=== PATIENT | female | born 1955 | race Caucasian/White ===

== ENCOUNTER 2020-11-18 10:28 | Inpatient (IN) | payer OTHER ==
[~2020-11-18] VITALS: Ht 157.5 cm; Wt 93.9 kg
[2020-11-18 11:31] LABS: BASOPHILS ABSOLUTE AUTO 0.06 K/mm3 (0.00-0.23); BASOPHILS PERCENT AUTO 1 % (0-2); EOSINOPHILS ABSOLUTE AUTO 0.04 K/mm3 (0.00-0.68); EOSINOPHILS PERCENT AUTO 0 % (0-6); Hematocrit 43.9 % (33.0-51.0); Hemoglobin 13.7 g/dL (11.5-16.0); IMMATURE GRAN ABSOLUTE AUTO 0.06 K/mm3 (0.00-0.10); IMMATURE GRAN PERCENT AUTO 1 % (0-1); LYMPHOCYTES ABSOLUTE AUTO 0.62 K/mm3 (0.84-5.20); LYMPHOCYTES PERCENT AUTO 6 % (21-46); MONOCYTES ABSOLUTE AUTO 0.61 K/mm3 (0.16-1.47); MONOCYTES PERCENT AUTO 6 % (4-13); Mean Corpuscular HGB 30.2 pg (26.0-34.0); Mean Corpuscular HGB Conc 31.2 g/dL (31.5-36.5); Mean Corpuscular Volume 97 fL (80-100); Mean Platelet Volume 9.7 fL (9.1-12.4); NEUTROPHILS PERCENT AUTO 87 % (41-73); Platelet Count 383 K/mm3 (150-400); RDW Coefficient Variation 11.8 % (11.7-14.2); RDW Standard Deviation 42.2 fL (35.1-46.3); Red Blood Cell Count 4.54 M/mm3 (3.80-5.20); White Blood Cell Count 10.59 K/mm3 (4.00-11.30)
[2020-11-18 11:49] LABS: Alanine Aminotransfer (ALT/SGP 19 U/L (12-78); Albumin, Blood 3.2 g/dL (3.4-5.0); Albumin/Globulin Ratio 0.7 (0.8-1.8); Alk Phos 65 U/L (50-136); Anion Gap 3 mmol/L (6-16); Aspartate Aminotrans (AST/SGOT 17 U/L (12-37); Bilirubin, Total 0.6 mg/dL (0.1-1.0); Blood Urea Nitrogen 9 mg/dL (8-24); Bun/Creatinine Ratio 23.8 (12.0-20.0); CO2, Blood 32 mmol/L (21-32); Calcium, Blood 9.2 mg/dL (8.5-10.1); Chloride, Blood 91 mmol/L (98-108); Creatinine, Blood 0.38 mg/dL (0.40-1.00); Globulin, Blood 4.5 g/dL (2.2-4.0); Glomerular Filtration Rate >60 (60-); Glucose, Blood 160 mg/dL (70-99); Potassium, Blood 4.5 mmol/L (3.5-5.5); Sodium, Blood 126 mmol/L (136-145); Total Protein, Blood 7.7 g/dL (6.4-8.2)
[2020-11-18 11:54] LABS: International Normalized Ratio 1.12; Prothrombin Time Results 11.9 Sec (9.7-11.5)
[2020-11-18 18:28] LABS: PCO2 Arterial 49.5 mmHg (35-45); PO2 Arterial 78.6 mmHg (80-100); pH Blood Arterial 7.43 (7.35-7.45)
--- NOTE | 2020-11-18 19:54 | NUR ---
PCU ADMIT PT PREVIOUSLY ADMITTED TO PCU-12 @ APPROX 1815. THIS RN ASSUMING CARE OF PT @ APPROX 1900. PT A&O X4. BP ELEVATED, OTHERWISE VSS. SPO2 > 92% ON 5L NC W/ PT REPORT OF RA @ BASELINE. MONITOR SHOWING ST, HR 100-110. PT UP IN RM, HOLDING ON TO FURNITURE FOR STANDING, WALKING ALONG BEDSIDE. PT SOB W/ ACTIVITY, REQUIRING REMINDER FOR DEEP BREATHING & REST. BLE W/ +2 EDEMA. WILL CONTINUE TO MONITOR & PROVIDE CARE.
[2020-11-19 04:01] LABS: Anion Gap 8 mmol/L (6-16); Blood Urea Nitrogen 18 mg/dL (8-24); Bun/Creatinine Ratio 32.2 (12.0-20.0); CO2, Blood 32 mmol/L (21-32); Calcium, Blood 9.6 mg/dL (8.5-10.1); Chloride, Blood 94 mmol/L (98-108); Creatinine, Blood 0.56 mg/dL (0.40-1.00); Glomerular Filtration Rate >60 (60-); Glucose, Blood 194 mg/dL (70-99); Potassium, Blood 3.7 mmol/L (3.5-5.5); Sodium, Blood 134 mmol/L (136-145)
--- NOTE | 2020-11-19 05:54 | NUR ---
BP & CBG / CALL TO BP CONTINUES TO BE ELEVATED DESPITE PRN IV HYDRALAZINE GIVEN X2 THIS SHIFT & PT HOME METOPROLOL DOSE NOT CURRENTLY ORDERED. MD LIRA W/ ORDER TO RESTART HOME PO METOPROLOL, SEE ORDER. PT GLUCOSE NOTED TO BE ELEVATED W/ AM LABS. PT DENIES HX DM, BUT IS CURRENTLY RECIEVING IV SOLU-MEDROL, SEE EMAR. MD LIRA W/ ORDER FOR AC&HS CBG MONITORING & LOW SLIDING SCALE INSULIN COVERAGE, SEE ORDERS.
--- NOTE | 2020-11-19 05:59 | NUR ---
SHIFT SUMMARY PT A&O X4. BP ELEVATED, MEDICATED W/ PRN IV HYDRALAZINE X2 THIS SHIFT. OTHERWISE VSS. SPO2 > 92% ON 4-5L NC. MONITOR SHOWING ST, HR 100-110. NO EVENTS OVER NIGHT. WILL CONTINUE TO MONITOR & PROVIDE CARE UNTIL REPORT OFF TO DAY SHIFT RN.
--- NOTE | 2020-11-19 08:37 | NUR ---
Dr. Guzmán here, rounding on pt. Received new orders for transfer in house with telemetry to medical floor. Blood pressure elevated; doctor stated to give am meds now, recheck in an hour and call him if no improvement. She is sitting on side of bed, states that she is feeling much better than she was yesterday. NO obvious dyspnea, mild tachypnea at 20 resp/min, while wearing oxygen at 4 l/min. No pursed lip breathing, able to carry on conversation without breaths in middle of sentences.
--- NOTE | 2020-11-19 09:30 | NUR ---
Standby assistance given by SABAS Mercer, for pt's toileting needs. Heart rate 104-110 during the activity.
--- NOTE | 2020-11-19 10:43 | NUR ---
ASSUMED CARE, MORNING UPDATE PT WAS SLEEPING AT THE TIME OF BEDSIDE REPORT. PT HAS HAD ELEVATED BP THIS MORNING AND IT WAS REPORTED ELEVATED THROUGHOUT THE NIGHT. PRN HYDRALIZINE HAS BEEN ADMINISTERED, DR. MUNROE IS AWARE. PT ON 5L O2 AND BECOMES SOB WITH ACTIVITY AND LYING FLAT. AN ECHO WAS PERFORMED THIS MORNING. TELE SHOWED NEW T-WAVE DEPRESSION THIS AM AT APPROXIMATELY 1015; AN EKG WAS COMPLETED. PT DENIES SOB, CHEST PAIN OR PRESSURE OR DISCOMFORT. PT IS SITTING IN BED AT THIS TIME
--- NOTE | 2020-11-19 15:20 | NUR ---
Advance Directive (AD) education conducted. Patient tells me about her medical issues, about her two sisters that are close to her (one who is buying a house with her) and about her relationship history. Patient then explains her interest in AD but states that her sister will fill it out. I explain about the importance and purpose of the AD and then the filing process and notary/witness requirements. Patient displays a comprehension and voices an appreciation for the information.
--- NOTE | 2020-11-19 19:32 | NUR ---
SHIFT SUMMARY PT HAS REMAINED INDEPENDENT IN THE ROOM THROUGHOUT THE DAY. ECHO WAS COMPLETED THIS MORNING. PT IS ON ADA DIET AND AC/HS CBG CHECKS AND HAS NEEDED LITTLE COVERAGE TODAY. PT'S STATUS WAS CHANGED TO MED WITH TELE, SLIGHTLY ELEVATED BP THIS AFTERNOON HR HAS SUSTAINED BETWEEN 80s-90s. PT ON 4L O2 VIA NC. PT DID HAVE A RECOGNIZABLE T WAVE DEPRESSION THIS MORNING; DR. MUNROE WAS NOTIFIED AND AN EKG WAS COMPLETED. PT IS IN HER ROOM DANGLING AT THE BESIDE WATCHING TELEVISION
--- NOTE | 2020-11-20 05:41 | NUR ---
CONTINUOUS WASHER OPERATOR SUMMARY PT HAS MAINTAINED >92 ON 4L NC W LITTLE TO NO SOB ON EXERTION. PT HAD ELEVATED BP AT START OF THE SHIFT SO PRN HYDRALAZINE WAS GIVEN AND PT HAS MAINTAINED A BP OF 134/72 FOR THE REST OF THE SHIFT. PT IS SLEEPING W CALL LIGHT WITHIN REACH, WCTM.
--- NOTE | 2020-11-20 08:04 | NUR ---
ASSUMED CARE FROM NOC RN PT WAS AWAKE AND SITTING AT THE SIDE OF THE BED DURING REPORT. PT REPORTS HER LEGS FEELING LESS SWOLLEN. BP HAS STABLEIZED, VS STABLE, PT ON 5L O2 VIA NC TO MAINTAIN SATS ABOVE 92%. PT INDEPENDENT IN THE ROOM
--- NOTE | 2020-11-20 18:43 | NUR ---
SHIFT SUMMARY PT HAS BEEN INDEPENDENT IN THE ROOM TODAY. PT HAS BEEN OFFERED AMBULATION IN THE HALLS BUT HAS REFUSED STATING SHE JUST WANTS TO WALK IN HER ROOM. PT IS CURRENTLY ON 2L O2 VIA NC AND IS MAINTAINING SATS ABOVE 92%. DR. MUNROE WOULD LIKE TO ATTEMPT TO TITRATE O2 DOWN, IF UNABLE TO THEN A HOME O2 STUDY CAN BE COMPLETED PRIOR TO DISCHARGE. PT'S VS ARE STABLE. PT DANGLING AT THE BEDSIDE AT THIS TIME
[2020-11-21 04:28] LABS: Anion Gap 4 mmol/L (6-16); Blood Urea Nitrogen 30 mg/dL (8-24); Bun/Creatinine Ratio 50.5 (12.0-20.0); CO2, Blood 35 mmol/L (21-32); Calcium, Blood 9.5 mg/dL (8.5-10.1); Chloride, Blood 93 mmol/L (98-108); Creatinine, Blood 0.59 mg/dL (0.40-1.00); Glomerular Filtration Rate >60 (60-); Glucose, Blood 149 mg/dL (70-99); Potassium, Blood 4.6 mmol/L (3.5-5.5); Sodium, Blood 132 mmol/L (136-145)
--- NOTE | 2020-11-21 04:38 | NUR ---
SHIFT SUMMARY PATIENT IS ALERT AND ORIENTED, COOPERATIVE WITH CARE. PATIENT IS INDEPENDENT IN ROOM AND WITH REPOSITIONING. SLEPT MOST THE NIGHT. 02 SATS 90-92% ON 2L VIA NC. VSS, NO ACUTE CHANGES. PATIENT CALLS APPROPRIATELY. CALL LIGHT IN REACH.
--- NOTE | 2020-11-21 10:51 | NUR ---
ASSUMED CARE FROM NOC RN, MORNING UPDATE PT WAS AWAKE DURING MORNING REPORT AND WAS SITTING AT THE BEDSIDE. PT WAS ABLE TO TAKE HER MORNING MEDICATION. VS STABLE, PT ON 1L O2 VIA NC AT THE START OF SHIFT. PT IS INDEPENDENT IN THE ROOM. PT WAS ABLE TO COMPLETE A HOME O2 EVAL WITH RT AND IT WAS DETERMINED THAT SHE COULD BE ON RA AT REST BUT WOULD NEED 3L O2 FOR ACTIVITY. PT RESTING IN HER ROOM NOW AWAITING DISCHARGE
[2020-11-21] MEDS ORDERED: IPRAT-ALBUT 0.5-3 ML INH (10:56)
[2020-11-21] MEDS ORDERED: FURO40 PO (11:00)
[2020-11-21] MEDS ORDERED: Deltasone 10 mg10 MG PO (11:03)
[2020-11-21] MEDS ORDERED: FLUTICASONE-SA1 EAC1 INH (12:06)
--- NOTE | 2020-11-21 15:27 | NUR ---
DISCHARGE PT WAS DISCHARGED AT APPROXIMATELY 1450 TODAY AND WAS ESCORTED OFF OF THE UNIT BY SKOOG OPERATOR, Radha HERRMANN. PT VS STABLE. PT GIVEN DISCHARGE INSTRUCTIONS TO WEAR HOME O2 WITH ACTIVITY, PUT IN CONTACT WITH [facility] AND GIVEN A HOME O2 TAKE. PT WAS GIVEN INFORMATION REGARDING NEW MEDICATIONS THAT WERE SENT TO [facility] IN [place]. PT WAS IN NSR AT TIME OF DISCHARGE AND REPORTED NO SOB, CHEST PAIN OR DISCOMFORT.
[2021-01-28] MEDS ORDERED: POTCHL20ER PO (14:45)
[2021-01-28] MEDS ORDERED: Catapres-Tts 11 EACH TOP (14:45)
[2021-01-29] MEDS ORDERED: METO50 PO (18:26)
[2021-02-01] MEDS ORDERED: AMLO5 PO (12:19)
[2021-02-01] MEDS ORDERED: AIRDUO RESPICL1 EAC4 INH (12:21)
[2021-02-01] MEDS ORDERED: LOSA50 PO (12:22)
[2021-02-01] MEDS ORDERED: DELTASONE20 MG PO (12:23)
[2021-02-01] MEDS ORDERED: SENN187 PO (12:25)
[2021-02-01] MEDS ORDERED: SPIR25 PO (12:26)
[2021-02-01] MEDS ORDERED: TIOT18 INH (12:28)
== END 2020-11-21 14:59 | disposition home or self-care (01) | DRG 291 ==
LOC: ER 10:28 → PCU 16:19
PROVIDERS: Emergency Medicine; ADMIT Internal Medicine
DX: I11.0 Hypertensive heart disease with heart failure (principal); J96.01 Acute respiratory failure with hypoxia; J44.1 Chronic obstructive pulmonary disease with (acute) exacerbation; E87.1 Hypo-osmolality and hyponatremia; I50.33 Acute on chronic diastolic (congestive) heart failure; I16.0 Hypertensive urgency; R73.9 Hyperglycemia, unspecified; Z87.891 Personal history of nicotine dependence
CPT/HCPCS: 36415; 36600; 71046; 71260; 80048; 80053; 82803; 82947; 83036; 83880; 84484; 85025; 85610; 93005; 93010; 93306; 94640; 94664; 94667; 94760; 94761; 96374; 96375; 98960; 99285-25; A9270; J0360; J1650; J1940; J2930; Q9967

== ENCOUNTER 2020-12-03 18:48 | Observation (INO) | payer OTHER ==
[~2020-12-03] VITALS: Ht 160 cm; Wt 94.0 kg
[~2020-12-03 18:48] MED LIST: Deltasone 10 mg10 MG PO; FLUTICASONE-SA1 EAC1 INH; FURO40 PO; IPRAT-ALBUT 0.5-3 ML INH
[2020-12-03 19:23] LABS: BASOPHILS ABSOLUTE AUTO 0.04 K/mm3 (0.00-0.23); BASOPHILS PERCENT AUTO 0 % (0-2); EOSINOPHILS ABSOLUTE AUTO 0.13 K/mm3 (0.00-0.68); EOSINOPHILS PERCENT AUTO 1 % (0-6); Hematocrit 41.7 % (33.0-51.0); Hemoglobin 13.4 g/dL (11.5-16.0); IMMATURE GRAN PERCENT AUTO 1 % (0-1); LYMPHOCYTES ABSOLUTE AUTO 0.83 K/mm3 (0.84-5.20); LYMPHOCYTES PERCENT AUTO 5 % (21-46); MONOCYTES ABSOLUTE AUTO 1.03 K/mm3 (0.16-1.47); MONOCYTES PERCENT AUTO 7 % (4-13); Mean Corpuscular HGB 30.5 pg (26.0-34.0); Mean Corpuscular HGB Conc 32.1 g/dL (31.5-36.5); Mean Corpuscular Volume 95 fL (80-100); Mean Platelet Volume 9.7 fL (9.1-12.4); NEUTROPHILS ABSOLUTE AUTO 13.14 K/mm3 (1.96-9.15); NEUTROPHILS PERCENT AUTO 86 % (41-73); Platelet Count 232 K/mm3 (150-400); RDW Coefficient Variation 12.5 % (11.7-14.2); RDW Standard Deviation 44.1 fL (35.1-46.3); White Blood Cell Count 15.27 K/mm3 (4.00-11.30)
[2020-12-03 19:42] LABS: Alanine Aminotransfer (ALT/SGP 23 U/L (12-78); Albumin, Blood 3.4 g/dL (3.4-5.0); Albumin/Globulin Ratio 0.8 (0.8-1.8); Alk Phos 48 U/L (50-136); Anion Gap 8 mmol/L (6-16); Aspartate Aminotrans (AST/SGOT 14 U/L (12-37); Bilirubin, Total 0.7 mg/dL (0.1-1.0); Blood Urea Nitrogen 12 mg/dL (8-24); CO2, Blood 28 mmol/L (21-32); Chloride, Blood 86 mmol/L (98-108); Creatinine, Blood 0.46 mg/dL (0.40-1.00); Glomerular Filtration Rate >60 (60-); Glucose, Blood 229 mg/dL (70-99); Potassium, Blood 4.4 mmol/L (3.5-5.5); Sodium, Blood 122 mmol/L (136-145); Total Protein, Blood 7.4 g/dL (6.4-8.2); Troponin I <0.015 ng/mL (0.000-0.040)
[2020-12-03 23:16] LABS: PCO2 Arterial 54.4 mmHg (35-45); PO2 Arterial 73.2 mmHg (80-100); pH Blood Arterial 7.36 (7.35-7.45)
--- NOTE | 2020-12-04 04:13 | NUR ---
ADMIT NOTE PT ARRIVED TO PCU FROM ED VIA STRETCHER AT APPROX 0245. THE PT AMBULATED FROM ED STRETCHER TO PCU BED INDEPENDENTLY. PT A&OX4. SP02>92% ON 4L NC. PT HAS SOB W/ EXERTION, LUNGS DIM. TELEMETRY READS SR, HR 80'S. PT AMBULATED TO BATHROOM INDEPENDENTLY WITH NO ISSUES. PT DENIES PAIN. PT C/O SHE HASNT SLEPT IN 3 DAYS AND R ARM HAS SLIGHT TREMOR, WHICH PT STATES IS "PROBABLY BC I HAVEN'T SLEPT." PT ORIENTED TO ROOM AND CALL LIGHT. CALL LIGHT IN REACH. BED IN LOWEST POSITION.
[2020-12-04 04:32] LABS: Influenza A, PCR NEGATIVE (NEGATIVE); Influenza B, PCR NEGATIVE (NEGATIVE); Resp Syncytial Virus, PCR NEGATIVE (NEGATIVE); SARS-Cov-2 (COVID-19) PCR, MMC NEGATIVE (NEGATIVE)
[2020-12-04 04:41] LABS: BASOPHILS ABSOLUTE AUTO 0.02 K/mm3 (0.00-0.23); BASOPHILS PERCENT AUTO 0 % (0-2); EOSINOPHILS PERCENT AUTO 0 % (0-6); Hematocrit 41.1 % (33.0-51.0); Hemoglobin 12.9 g/dL (11.5-16.0); IMMATURE GRAN ABSOLUTE AUTO 0.06 K/mm3 (0.00-0.10); IMMATURE GRAN PERCENT AUTO 1 % (0-1); LYMPHOCYTES ABSOLUTE AUTO 0.29 K/mm3 (0.84-5.20); LYMPHOCYTES PERCENT AUTO 3 % (21-46); MONOCYTES ABSOLUTE AUTO 0.15 K/mm3 (0.16-1.47); MONOCYTES PERCENT AUTO 1 % (4-13); Mean Corpuscular HGB 29.9 pg (26.0-34.0); Mean Corpuscular HGB Conc 31.4 g/dL (31.5-36.5); Mean Corpuscular Volume 95 fL (80-100); Mean Platelet Volume 9.9 fL (9.1-12.4); NEUTROPHILS PERCENT AUTO 95 % (41-73); Platelet Count 225 K/mm3 (150-400); RDW Coefficient Variation 12.6 % (11.7-14.2); RDW Standard Deviation 44.2 fL (35.1-46.3); Red Blood Cell Count 4.32 M/mm3 (3.80-5.20); White Blood Cell Count 10.62 K/mm3 (4.00-11.30)
[2020-12-04 05:01] LABS: Alanine Aminotransfer (ALT/SGP 21 U/L (12-78); Albumin, Blood 3.4 g/dL (3.4-5.0); Albumin/Globulin Ratio 0.8 (0.8-1.8); Alk Phos 46 U/L (50-136); Anion Gap 11 mmol/L (6-16); Aspartate Aminotrans (AST/SGOT 13 U/L (12-37); Bilirubin, Total 0.8 mg/dL (0.1-1.0); Blood Urea Nitrogen 14 mg/dL (8-24); Bun/Creatinine Ratio 27.6 (12.0-20.0); CO2, Blood 27 mmol/L (21-32); Calcium, Blood 9.2 mg/dL (8.5-10.1); Chloride, Blood 87 mmol/L (98-108); Creatinine, Blood 0.51 mg/dL (0.40-1.00); Glomerular Filtration Rate >60 (60-); Glucose, Blood 169 mg/dL (70-99); Potassium, Blood 3.8 mmol/L (3.5-5.5); Sodium, Blood 125 mmol/L (136-145); Total Protein, Blood 7.4 g/dL (6.4-8.2)
--- NOTE | 2020-12-04 05:39 | NUR ---
SHIFT SUMMARY PT A&OX4. SP02>92% ON 4L NC. PT HAS SOB W/ EXERTION. TELEMETRY READS SR, HR 80'S. PT AMBULATeS TO BATHROOM INDEPENDENTLY. PT DENIES PAIN. PT SWABBED FOR COVID-19, RESULTS ARE NEGATIVE. PT SLEPT MOST OF POST ADMIT SHIFT. CALL LIGHT IN REACH. BED IN LOWEST POSITION.
--- NOTE | 2020-12-04 07:43 | NUR ---
PT REPORTS that after starting the fluticasone/salmeterol at home upon her recent hospital discharge, she felt that it was worsening her work of breathing. Noted this was just ordered by the doctor this morning. Spoke with RT Javi, and she will hold the medication until we can clarify with the attending MD.
--- NOTE | 2020-12-04 09:27 | NUR ---
Pt states that she spoke with two doctors this morning, and told them about the inhaler which was making her breathing worse.
[2020-12-04] MEDS ORDERED: DULERA 100 MCG/13 GM INH (12:04)
[2020-12-04] MEDS ORDERED: Prednisone50 MG PO (12:08)
[2020-12-04] MEDS ORDERED: SYMBICORT 160-4.6 GM INH (13:52)
[2021-01-28] MEDS ORDERED: POTCHL20ER PO (14:45)
[2021-01-28] MEDS ORDERED: Catapres-Tts 11 EACH TOP (14:45)
[2021-01-29] MEDS ORDERED: METO50 PO (18:26)
[2021-02-01] MEDS ORDERED: AMLO5 PO (12:19)
[2021-02-01] MEDS ORDERED: AIRDUO RESPICL1 EAC4 INH (12:21)
[2021-02-01] MEDS ORDERED: LOSA50 PO (12:22)
[2021-02-01] MEDS ORDERED: DELTASONE20 MG PO (12:23)
[2021-02-01] MEDS ORDERED: SENN187 PO (12:25)
[2021-02-01] MEDS ORDERED: SPIR25 PO (12:26)
[2021-02-01] MEDS ORDERED: TIOT18 INH (12:28)
== END 2020-12-04 14:45 | disposition home or self-care (01) ==
LOC: ER 18:48 → PCU 18:49 → ER 12-04 00:53 → PCU 12-04 02:38
PROVIDERS: Emergency Medicine; Physician Assistant; ADMIT Internal Medicine
DX: J44.1 Chronic obstructive pulmonary disease with (acute) exacerbation (principal); I11.0 Hypertensive heart disease with heart failure; I50.33 Acute on chronic diastolic (congestive) heart failure; J96.21 Acute and chronic respiratory failure with hypoxia; E87.1 Hypo-osmolality and hyponatremia; E66.9 Obesity, unspecified; Z99.81 Dependence on supplemental oxygen; Z88.0 Allergy status to penicillin; Z87.891 Personal history of nicotine dependence; Z68.35 Body mass index [BMI] 35.0-35.9, adult; Z20.822 Contact with and (suspected) exposure to COVID-19; Z79.52 Long term (current) use of systemic steroids
CPT/HCPCS: 0241U; 36415; 36600; 71046; 80053; 82803; 83880; 84484; 85025; 93005; 93010; 94644; 94760; 96372; 96374; 96375; 99285-25; A9270; G0378; J1650; J1940; J2930

== ENCOUNTER 2020-12-14 19:29 | Inpatient (IN) | payer OTHER ==
[~2020-12-14] VITALS: Ht 167.6 cm; Wt 95.0 kg
[~2020-12-14 19:29] MED LIST changes: +DULERA 100 MCG/13 GM INH; +Prednisone50 MG PO; +SYMBICORT 160-4.6 GM INH
[2020-12-14 19:55] LABS: BASOPHILS ABSOLUTE AUTO 0.08 K/mm3 (0.00-0.23); BASOPHILS PERCENT AUTO 1 % (0-2); EOSINOPHILS ABSOLUTE AUTO 0.23 K/mm3 (0.00-0.68); EOSINOPHILS PERCENT AUTO 2 % (0-6); IMMATURE GRAN ABSOLUTE AUTO 0.27 K/mm3 (0.00-0.10); IMMATURE GRAN PERCENT AUTO 2 % (0-1); LYMPHOCYTES ABSOLUTE AUTO 2.32 K/mm3 (0.84-5.20); LYMPHOCYTES PERCENT AUTO 17 % (21-46); MONOCYTES ABSOLUTE AUTO 1.65 K/mm3 (0.16-1.47); MONOCYTES PERCENT AUTO 12 % (4-13); Mean Corpuscular HGB 29.6 pg (26.0-34.0); Mean Corpuscular Volume 96 fL (80-100); Mean Platelet Volume 9.2 fL (9.1-12.4); NEUTROPHILS PERCENT AUTO 67 % (41-73); Platelet Count 412 K/mm3 (150-400); RDW Standard Deviation 45.9 fL (35.1-46.3); Red Blood Cell Count 4.39 M/mm3 (3.80-5.20); White Blood Cell Count 13.65 K/mm3 (4.00-11.30)
[2020-12-14 20:06] LABS: PO2 Arterial 243 mmHg (80-100); pH Blood Arterial 7.19 (7.35-7.45)
[2020-12-14 20:07] LABS: PCO2 Arterial 89.9 mmHg (35-45)
[2020-12-14 20:08] LABS: Alanine Aminotransfer (ALT/SGP 27 U/L (12-78); Albumin, Blood 3.5 g/dL (3.4-5.0); Albumin/Globulin Ratio 0.8 (0.8-1.8); Alk Phos 59 U/L (50-136); Anion Gap 2 mmol/L (6-16); Aspartate Aminotrans (AST/SGOT 24 U/L (12-37); Bilirubin, Total 0.5 mg/dL (0.1-1.0); Blood Urea Nitrogen 11 mg/dL (8-24); Bun/Creatinine Ratio 24.7 (12.0-20.0); CO2, Blood 33 mmol/L (21-32); Calcium, Blood 9.3 mg/dL (8.5-10.1); Chloride, Blood 85 mmol/L (98-108); Creatinine, Blood 0.45 mg/dL (0.40-1.00); Globulin, Blood 4.4 g/dL (2.2-4.0); Glomerular Filtration Rate >60 (60-); Glucose, Blood 185 mg/dL (70-99); Potassium, Blood 4.9 mmol/L (3.5-5.5); Sodium, Blood 120 mmol/L (136-145); Total Protein, Blood 7.9 g/dL (6.4-8.2); Troponin I <0.015 ng/mL (0.000-0.040)
[2020-12-14 21:34] LABS: Influenza A, PCR NEGATIVE (NEGATIVE); Influenza B, PCR NEGATIVE (NEGATIVE); Resp Syncytial Virus, PCR NEGATIVE (NEGATIVE); SARS-Cov-2 (COVID-19) PCR, MMC NEGATIVE (NEGATIVE)
[2020-12-14 22:06] LABS: Source, Urine Catheter
[2020-12-14] MEDS ORDERED: METO100 PO (22:07)
[2020-12-14] MEDS ORDERED: ALBU90OI INH (22:07)
[2020-12-14] MEDS ORDERED: ZESTRIL40 M1 PO (22:07)
[2020-12-14 22:08] LABS: Bilirubin, Urine Neg (Neg); Blood, Urine 1+ (Neg); Glucose Qualitative, Urine 1+ (Neg); Ketones, Urine 1+ (Neg); Leukocyte Esterase, Urine Neg (Neg); Nitrite, Urine Neg (Neg); Protein, Urine 3+ (Neg); Specific Gravity, Urine 1.025 (1.003-1.022); Urobilinogen, Urine 1+ (Normal)
[2020-12-14] MEDS ORDERED: SPIRIVA RESPIMAT4 G3 INH (22:08)
[2020-12-14] MEDS ORDERED: OMEP20ER PO (22:08)
[2020-12-14] MEDS ORDERED: ALBU2.5V5 INH (22:09)
[2020-12-14] MEDS ORDERED: POTCHL20ER PO (22:10)
[2020-12-14 22:16] LABS: Appearance, Urine Clear (Clear); Color, Urine Amber (P-Yellow)
[2020-12-14 22:17] LABS: Red Blood Cells, Urine 0-2 /hpf (0-2); Squamous Epithelial Cells Few /hpf (Few); White Blood Cells, Urine 0-2 /hpf (0-5)
[2020-12-14 22:18] LABS: Amorphous Mod (0-Heavy); Bacteria Mod /hpf
[2020-12-14 23:41] LABS: PCO2 Arterial 53.3 mmHg (35-45)
[2020-12-14 23:42] LABS: pH Blood Arterial 7.42 (7.35-7.45)
--- NOTE | 2020-12-15 01:34 | NUR ---
ASSUMPTION OF CARE RECEIVED REPORT FROM CAREY PIEDRA AT 2205. PATIENT ARRIVED TO ICU AT 2300 NEW ADMISSION FROM ED. ASSUMED CARE OF PATIENT. PATIENT INTUBATED ETT 8.0, 24 AT THE LIP. VENT SETTINGS AC 24, PI20, PEEP 5, FIO2 35%. SEDATED ON FENTANYL OF 75MCG/HR, AND VERSED OF 5MG/HR. REVIEWED ORDERS, CLARIFIED SEDATION AND LASIX DRIP WITH DR. ALATORRE. RECEIVED NEW ORDERS. FENTANYL TO BE DISCONTINUED AND PROPOFOL RESTARTED. BLOOD PRESSURE CURRENTLY STABLE WITH LEVOPHED. LABS REVIEWED, VENT SETTINGS ADJUSTED PER RT. WILL CONTINUE TO MONITOR AND TREAT PRESCRIBED.
--- NOTE | 2020-12-15 04:00 | NUR ---
REASSESSMENT NO ACUTE CHANGES FROM PREVIOUS ASSESSMENT. VENT SETTINGS CHANGE PI TO 25. FIO2 AT 35% WITH SATS 90%. PATIENT OPENS EYES SPONTANEOUSLY, REMAINS CALM/COOPERATIVE. FOLLOWS COMMANDS, NO S/S OF DISTRESS. WILL CONTINUE TO MONITOR.
[2020-12-15 04:04] LABS: BASOPHILS ABSOLUTE AUTO 0.01 K/mm3 (0.00-0.23); BASOPHILS PERCENT AUTO 0 % (0-2); EOSINOPHILS PERCENT AUTO 0 % (0-6); Hematocrit 34.5 % (33.0-51.0); Hemoglobin 11.2 g/dL (11.5-16.0); IMMATURE GRAN ABSOLUTE AUTO 0.12 K/mm3 (0.00-0.10); IMMATURE GRAN PERCENT AUTO 1 % (0-1); LYMPHOCYTES ABSOLUTE AUTO 0.39 K/mm3 (0.84-5.20); LYMPHOCYTES PERCENT AUTO 4 % (21-46); MONOCYTES ABSOLUTE AUTO 0.14 K/mm3 (0.16-1.47); MONOCYTES PERCENT AUTO 1 % (4-13); Mean Corpuscular HGB 29.9 pg (26.0-34.0); Mean Corpuscular HGB Conc 32.5 g/dL (31.5-36.5); Mean Corpuscular Volume 92 fL (80-100); Mean Platelet Volume 9.1 fL (9.1-12.4); NEUTROPHILS ABSOLUTE AUTO 9.91 K/mm3 (1.96-9.15); NEUTROPHILS PERCENT AUTO 94 % (41-73); Platelet Count 352 K/mm3 (150-400); Red Blood Cell Count 3.74 M/mm3 (3.80-5.20); White Blood Cell Count 10.57 K/mm3 (4.00-11.30)
[2020-12-15 04:24] LABS: Alanine Aminotransfer (ALT/SGP 17 U/L (12-78); Albumin, Blood 2.6 g/dL (3.4-5.0); Albumin/Globulin Ratio 0.7 (0.8-1.8); Alk Phos 45 U/L (50-136); Anion Gap 7 mmol/L (6-16); Aspartate Aminotrans (AST/SGOT 14 U/L (12-37); Bilirubin, Total 0.3 mg/dL (0.1-1.0); Blood Urea Nitrogen 11 mg/dL (8-24); CO2, Blood 34 mmol/L (21-32); CPK Creatine Kinase 75 U/L (26-193); Calcium, Blood 8.4 mg/dL (8.5-10.1); Chloride, Blood 82 mmol/L (98-108); Creatinine, Blood 0.55 mg/dL (0.40-1.00); Globulin, Blood 3.5 g/dL (2.2-4.0); Glomerular Filtration Rate >60 (60-); Glucose, Blood 284 mg/dL (70-99); Potassium, Blood 3.7 mmol/L (3.5-5.5); Sodium, Blood 123 mmol/L (136-145); Total Protein, Blood 6.1 g/dL (6.4-8.2); Troponin I 0.067 ng/mL (0.000-0.040)
--- NOTE | 2020-12-15 04:54 | NUR ---
MORRO REPORTED PATIENT'S CURRENT DOSE OF THE LASIX DRIP, URINE OUTPUT, BLOOD PRESSURE AND LEVOPHED NEEDS, AND HEART RATE INCREASING INTO THE 120-130'S TO DR. MUNROE. LASIX DRIP DISCONTINUED, ABG ORDERED AND DRAWN PER RT. WILL CONTINUE TO MONITOR.
[2020-12-15 04:57] LABS: pH Blood Arterial 7.54 (7.35-7.45)
[2020-12-15 04:58] LABS: PCO2 Arterial 40.5 mmHg (35-45); PO2 Arterial 53.5 mmHg (80-100)
--- NOTE | 2020-12-15 06:10 | NUR ---
SHIFT SUMMARY PATIENT REMAINED INTUBATED, SEDATED BUT EASILY AWAKENS. NO S/S OF DISTRESS. LASIX AND FENTANYL DRIPS WERE DISCONTINUED AND DISCONNECTED FROM PATIENT. GIL WITH CLEAR, YELLOW URINE. VITALS STABILIZING, LEVOPHED TITRATING DOWN FOR MAINTAINED MAP ABOVE 65. LABS DRAWN AND REVIEWED WITH DR. MUNROE. WILL CONTINUE TO MONITOR AND REPORT TO ONCOMING RN.
--- NOTE | 2020-12-15 07:45 | NUR ---
ASSUMED CARE BEDSIDE REPORT FROM IRAM PIEDRA. PT INTUBATED AND SEDATED. VENT SETTINGS AC 20/400/5/45%. 8.0 ETT, 24 AT TEETH. PROPOFOL GTT 30 MCG/KG/MIN, VERSED 5 MG/HR. PT OPENS EYES TO VERBAL STIMULI. FOLLOW SIMPLE DIRECTIONS. DOES NOT ANSWER YES/NO QUESTIONS. GAG/COUGH REFLEX PRESENT. LUNGS CLEAR. SMALL AMOUNT OF THICK, YELLOW SECRETIONS THROUGH ETT. ABD ROUND, SOFT, NON TENDER. BT X 4. OGT CLAMPED. LEVO GTT FOR MAP >65. INFUSING VIA RIJ CENTRAL LINE, DRESSING C/D/I. GIL PATENT, DRAINING CLEAR YELLOW URINE TO GRAVITY. 2+ EDEMA TO BILATERAL LE. HR VARIES FROM 100-130'S, ST. DISCUSSED c DR HIDALGO, PLAN TO HOLD LASIX, 500 ML NS BOLUS AND ALBUMIN. WILL CONTINUE TO MONITOR.
[2020-12-15 12:07] LABS: Troponin I 0.137 ng/mL (0.000-0.040)
--- NOTE | 2020-12-15 17:26 | NUR ---
SHIFT SUMMARY PT REMAINS INTUBATED AND SEDATED. VENT SETTINGS UNCHANGED, AC 20/400/5/45%. PROPOFOL GTT 50 MCG/KG/MIN, VERSED PLACED ON STANDBY. FENTANYL PRN. PT OPENS EYES TO VERBAL STIMULI. COUGH/GAG REFLEX. SMALL THICK SECRETIONS THROUGH ETT. LUNGS CLEAR. ABD ROUND, SOFT, NON TENDER. BT X 4. TUBE FEEDS STARTED THIS SHIFT. VHP AT GOAL OF 25 ML/HR c 30 ML FLUSHES q4 HR. 130 ML IN RESIDUALS THIS AFTERNOON. GIL PATENT, DRAINING CLEAR YELLOW URINE TO GRAVITY. 800 ML OUT THIS SHIFT. LEVO GTT TITRATED OFF THIS SHIFT. ALBUMIN X 2 GIVEN. LASIX D/C'D AND 500 ML BOLUS GIVEN THIS AM. HR VARIED FROM 100-140'S THIS SHIFT, METOPROLOL IVP GIVEN c MINIMAL RESULTS. EKG DONE, DR HIDALGO AWARE. WILL CONTINUE TO MONITOR UNTIL REPORT TO ONCOMING NURSE.
--- NOTE | 2020-12-15 20:43 | NUR ---
ASSUMED CARE AT 1900 PT LAYING IN BED INTUBATED WITH VENT SETTINGS AC 20, TV 400, PEEP 5, FIO2 45%; SMALL AMOUNT OF THICK YELLOW SECREATIONS SUCTIONED DURING ORAL CARE. PT IS REPONSIVE TO VERBAL STIMULI AND FOLLOWS COMMANDS LIKE OPENING EYES, SQUEEZING HANDS, AND MOVING BLE. PT DID NOT ANSWER YES/NO QUESTIONS WITH HEAD NOD. MINIMAL DEGREE OF TREMORS NOTED. TEMP 99.7. HR 100-135. SBP 110-120, MAP >65. VHP INFUSING VIA OG AT 25ML/HR (GOAL) WITH 30ML WATER FLUSHES Q4HR. GIL PATENT AND DRAINING TO GRAVITY. PROPOFOL INFUSING VIA RIGHT IJ AT 50MCG/KG/MIN. SEE SHIFT ASSESSMENT FOR FULL ASSESSMENT.
[2020-12-16 04:27] LABS: BASOPHILS ABSOLUTE AUTO 0.04 K/mm3 (0.00-0.23); BASOPHILS PERCENT AUTO 0 % (0-2); EOSINOPHILS ABSOLUTE AUTO 0.01 K/mm3 (0.00-0.68); EOSINOPHILS PERCENT AUTO 0 % (0-6); Hematocrit 33.3 % (33.0-51.0); Hemoglobin 10.8 g/dL (11.5-16.0); IMMATURE GRAN ABSOLUTE AUTO 0.25 K/mm3 (0.00-0.10); IMMATURE GRAN PERCENT AUTO 1 % (0-1); LYMPHOCYTES ABSOLUTE AUTO 0.61 K/mm3 (0.84-5.20); LYMPHOCYTES PERCENT AUTO 3 % (21-46); MONOCYTES ABSOLUTE AUTO 0.77 K/mm3 (0.16-1.47); MONOCYTES PERCENT AUTO 3 % (4-13); Mean Corpuscular HGB 30.2 pg (26.0-34.0); Mean Corpuscular HGB Conc 32.4 g/dL (31.5-36.5); Mean Corpuscular Volume 93 fL (80-100); Mean Platelet Volume 9.2 fL (9.1-12.4); NEUTROPHILS ABSOLUTE AUTO 21.35 K/mm3 (1.96-9.15); NEUTROPHILS PERCENT AUTO 93 % (41-73); Platelet Count 409 K/mm3 (150-400); RDW Coefficient Variation 13.3 % (11.7-14.2); RDW Standard Deviation 45.4 fL (35.1-46.3); Red Blood Cell Count 3.58 M/mm3 (3.80-5.20); White Blood Cell Count 23.03 K/mm3 (4.00-11.30)
[2020-12-16 04:43] LABS: Anion Gap 5 mmol/L (6-16); Blood Urea Nitrogen 14 mg/dL (8-24); Bun/Creatinine Ratio 26.9 (12.0-20.0); CO2, Blood 35 mmol/L (21-32); Calcium, Blood 9.5 mg/dL (8.5-10.1); Chloride, Blood 88 mmol/L (98-108); Creatinine, Blood 0.52 mg/dL (0.40-1.00); Glomerular Filtration Rate >60 (60-); Glucose, Blood 180 mg/dL (70-99); Magnesium, Blood 2.1 mg/dL (1.6-2.4); Phosphorus, Blood 3.3 mg/dL (2.5-4.9); Potassium, Blood 3.8 mmol/L (3.5-5.5); Sodium, Blood 128 mmol/L (136-145)
--- NOTE | 2020-12-16 07:27 | NUR ---
INCREASED HR PT HR INCREASED AND SUSTAINED 150-160 AT 0400 WELL INCREASE IN RR TO 30-40'S. DR HIDALGO NOTIFIED OF CHANGE AND ORDERED CARDIZEM GTT. GTT STARTED AND TITRATED UP TO 15MG/HR AND HR DECREASED TO 140'S. DR HIDALGO NOTIFIED AGAIN AND ORDERED TO RESTART VERSED. SLOWLY HR DECREASED TO 120'S NOW.
--- NOTE | 2020-12-16 07:32 | NUR ---
END OF SHIFT SUMMARY PT CONT TO BE INTUBATED WITH VENT SETTINGS AC 20, TV 400, PEEP 5, FIO2 50%. PT RESPONSIVE TO VERBAL STIMULI, FOLLOWS DIRECTIONS, AND POINTS TO OBJECTS/ITEMS. VERSED INFUSING AT 1MG/HR, PROPOFOL INFUSING AT 50MCG/KG/MIN. SEE PREVIOUS NOTE ABOUT INCREASE IN HR; HR NOW 120'S; CARDIZEM GTT INFUSING AT 10MG/HR. SBP 110-150. VHP INFUSING VIA OG AT 25ML/HR WITH 30ML WATER FLUSHES Q4HR. GIL PATENT AND DRAINING TO GRAVITY. REPORT GIVEN TO AM RN.
--- NOTE | 2020-12-16 08:30 | NUR ---
ASSESSMENT- PT SEDATED WITH PROPOFOL GTT AT 50 MCG/KG/MIN AND VERSED GTT AT 1 MG/MIN, ASLEEP, AWAKENS EASILY TO NAME, ABLE TO NOD HEAD TO QUESTIONS, MOTIONING WANTS ETT OUT. EXPLAINED PLAN OF CARE, REASSURANCE GIVEN. INCREASED VERSED DOSE FOR COMFORT. TOLERATING VENT SETTINGS, LUNGS CLEAR, DENIES SOB. APICAL REGULAR, HEARTRATE 110'S, CARDIZEM GTT AT 10 MG/HR. RIJ CENTRAL LINE DI, NS TKO. 3 PIV INTACT-D/C PIV RIGHT HAND AND LEFT AC-NOT NEEDED. ABDOMEN LARGE, SOFT, NONTENDER. DENIES NAUSEA. TUBE FEEDING AT GOAL RATE 25 CC/HR, LOW RESIDUAL. UO VIA GIL. HANDS, FEET EDEMATOUS. BILATERAL WRIST RESTRAINTS TO PREVENT SELF-EXTUBATION. REPOSITIONED
--- NOTE | 2020-12-16 09:21 | NUR ---
DR. CHERRY HERE-UPDATED. [facility] GTT D/C
--- NOTE | 2020-12-16 10:09 | NUR ---
SEDATE, CALM, HEARTRATE NOW 100'S. BP STABLE
--- NOTE | 2020-12-16 10:49 | NUR ---
DR. GILBERT HERE-UPDATED. VENT CHANGE AC 15. PT SLEEPING, NO COMPLAINTS.
--- NOTE | 2020-12-16 14:48 | NUR ---
VSS. BATH DONE, ASSISTED WITH REPOSITIONING. SLEEPS WHEN UNDISTURBED, AWAKENS EASILY. DENIES PAIN OR ANXIETY.
--- NOTE | 2020-12-16 15:41 | NUR ---
POSSESSSIONS- SISTER TOOK CLOTHES AND PURSE HOME-PERMISSION FROM PT.
--- NOTE | 2020-12-16 15:44 | NUR ---
VSS. AWAKENS EASILY TO NAME, DENIES COMPLAINTS EXCEPT ETT. PT'S SISTER HERE-UPDATED AND QUESTIONS ANSWERED. CONTINUE TO MONITOR
--- NOTE | 2020-12-16 18:30 | NUR ---
HAS BEEN STABLE WITHOUT COMPLAINTS. TOLERATING VENT. SINUS TO SINUS TACH. DENIES NAUSEA OR SOB. CONTINUE TO MONITOR
--- NOTE | 2020-12-16 20:30 | NUR ---
SHIFT ASSESSMENT ASSUMED CARE OF PT @ 1900, REPORT RECV'D FROM DOROTHEA MAK. PT INTUBATED AND SEDATED ON 50MCG/KG/MIN OF PROPOFOL. VENT SETTINGS: AC-15/400/5/50% c O2 SATS >90%. PT RESPONDS TO VERBAL STIMULI, ABLE TO SQUEEZE BOTH HANDS, NODS YES/NO TO QUESTIONING, DENIES N/V. TF @ GOAL, RESIDUALS <30ML. GIL CATH PATENT, DRAINING YELLOW URINE TO GRAVITY. SHRUTHI WRIST RESTRAINTS IN PLACE TO PROTECT ET TUBE. WILL CONTINUE TO MONITOR. WILL CONTINUE TO MONITOR.
[2020-12-17 03:44] LABS: BASOPHILS ABSOLUTE AUTO 0.03 K/mm3 (0.00-0.23); BASOPHILS PERCENT AUTO 0 % (0-2); EOSINOPHILS ABSOLUTE AUTO 0.01 K/mm3 (0.00-0.68); EOSINOPHILS PERCENT AUTO 0 % (0-6); Hematocrit 32.9 % (33.0-51.0); Hemoglobin 10.5 g/dL (11.5-16.0); IMMATURE GRAN ABSOLUTE AUTO 0.71 K/mm3 (0.00-0.10); IMMATURE GRAN PERCENT AUTO 3 % (0-1); LYMPHOCYTES ABSOLUTE AUTO 0.68 K/mm3 (0.84-5.20); LYMPHOCYTES PERCENT AUTO 3 % (21-46); MONOCYTES ABSOLUTE AUTO 0.74 K/mm3 (0.16-1.47); MONOCYTES PERCENT AUTO 3 % (4-13); Mean Corpuscular HGB Conc 31.9 g/dL (31.5-36.5); Mean Corpuscular Volume 94 fL (80-100); Mean Platelet Volume 9.3 fL (9.1-12.4); NEUTROPHILS ABSOLUTE AUTO 19.97 K/mm3 (1.96-9.15); NEUTROPHILS PERCENT AUTO 90 % (41-73); Platelet Count 420 K/mm3 (150-400); RDW Coefficient Variation 13.8 % (11.7-14.2); RDW Standard Deviation 47.4 fL (35.1-46.3); White Blood Cell Count 22.14 K/mm3 (4.00-11.30)
[2020-12-17 03:59] LABS: Anion Gap 2 mmol/L (6-16); Blood Urea Nitrogen 20 mg/dL (8-24); Bun/Creatinine Ratio 37.5 (12.0-20.0); CO2, Blood 38 mmol/L (21-32); Calcium, Blood 9.3 mg/dL (8.5-10.1); Chloride, Blood 90 mmol/L (98-108); Creatinine, Blood 0.53 mg/dL (0.40-1.00); Glomerular Filtration Rate >60 (60-); Glucose, Blood 180 mg/dL (70-99); Magnesium, Blood 2.2 mg/dL (1.6-2.4); Phosphorus, Blood 3.8 mg/dL (2.5-4.9); Potassium, Blood 3.9 mmol/L (3.5-5.5); Sodium, Blood 130 mmol/L (136-145)
[2020-12-17 04:56] LABS: PCO2 Arterial 45.6 mmHg (35-45); PO2 Arterial 54.9 mmHg (80-100); pH Blood Arterial 7.52 (7.35-7.45)
--- NOTE | 2020-12-17 06:17 | NUR ---
SHIFT SUMMARY PT REMAINS INTUBATED AND SEDATED. CONTINUES TO FOLLOW COMMANDS AND ASSIST WITH TURNS. POINTS AT ET TUBE DURING TURNS, SIGNALING SHE WANTS THE TUBE REMOVED. PT DID NOT PASS SBT, BECAME QUITE ANXIOUS, SEE RESPIRATORY THERAPIST NOTE. NO OTHER SIGNIFICANT CHANGES, WILL CONTINUE TO MONITOR.
--- NOTE | 2020-12-17 07:44 | NUR ---
ASSUMED CARE REPORT FROM OFF GOING RN. PT. RESPONDS TO VERBAL STIMULI, REMAINS SEDATED ON PROPOFOL AND INTUBATED. CURRENT VENT SETTINGS THIS AM OF AC 15, TV 400,50%, PEEP 5. LS CLEAR THIS AM, WITH MINIMAL SECREATIONS WITH DEEP SUCTION FROM ETT. TF VITAL HP INFUSING AT GOAL WITH RESIDUAL OF 50ML REINSTILLED THIS AM THROUGH OG TUBE. PT HAS CENTRAL LINE TO RIJ. VSS THIS AM. NADN. PT CHRISTIANSON. REMAINS IN BILAT WRIST RESTRAINTS TO PREVENT SELF EXTUBATION. GIL IN PLACE DRAINING TO GRAVITY.
--- NOTE | 2020-12-17 10:03 | NUR ---
SEDATION VACATION DR. GILBERT AT BEDSIDE TO JOEL. PROPOFOL PLACED ON STAND BY AND PT VENT CHANGED TO PS 10, FIO2 50% BY DR. GILBERT. PT. RR MID 30S DURING WEAN, UNABLE TO SLOW BREATHING WITH COACHING. PT. DENIES PAIN/ ANXIETY SHAKING HEAD YES AND NO TO QUESTIONS. HR INCREASING TO LOW 100S. PT WEANED FOR APPROX 20 MIN THEN SWITCHED BACK TO PREVIOUS VENT SETTINGS AND PROPOFOL RESTARTED. PT. FAMILY UPDATE ON CONDITION. NS STARTED X 1L PER DR. GILBERT AT 150ML/HR.
--- NOTE | 2020-12-17 18:21 | NUR ---
SHIFT SUMMARY PT. REMAINS SEDATED AND INTUBATED. ATTEMPTED WEAN TODAY FOR EXTUBATION BUT DUE TO HIGH RR AND HR INCREASING EXTUBATION DEFERRED AT THIS TIME. VSS T/O SHIFT. PT STARTED ON LOPRESSOR THIS SHIFT FOR HR CONTROL. PT. CONTINUES ON TF, WITH GIL DRAINING TO GRAVITY. OSIEL. REPORT TO ONCOMING RN.
--- NOTE | 2020-12-17 19:50 | NUR ---
ASSUMPTION OF CARE RECEIVED REPORT FROM CATIA PIEDRA AT 1915, ASSUMED CARE OF PATIENT. PATIENT INTUBATED WITH 8.0, 24 AT THE TEETH. VENT SETTINGS 15/400/5/45%. VITALS STABLE. PATIENT AWAKENS TO VOICE, FOLLOWS COMMANDS. PROPOFOL INFUSING AT 55MCG/KR/MIN. TF AT 25ML/HR ORDERED. GIL CATHETER PATENT AND DRAINING CLEAR, YELLOW URINE. NO S/S OF DISTRESS AT THIS TIME. WILL REVIEW ORDERS AND TREAT PRESCRIBED.
--- NOTE | 2020-12-18 | NUR ---
REASSESSMENT NO ACUTE CHANGES. PATIENT WITH PERIODS OF WAKING UP, MOVING ARMS AND FOLLOWING COMMANDS. BECOMES HYPERTENSIVE WHEN AWAKE. MEDICATED PRESCRIBED FOR SEDATIONG AND COMFORT. NO CHANGES TO TF OR IV MEDICATIONS INFUSING. WILL CONTINUE TO MONITOR.
--- NOTE | 2020-12-18 04:00 | NUR ---
REASSESSMENT NO ACUTE CHANGES FROM PREVIOUS ASSESSMENT. PATIENT SEDATED ON PROPOFOL OF 55MCG/KG/MIN. TF UNCHANGED WITH RESIDUALS REFED OF 75ML. VENT SETTINGS REMAINS 15/400/5/45%. VITALS STABLE. GIL PATENT AND DRAINING CLEAR, YELLOW URINE. WILL CONTINUE TO MONITOR.
[2020-12-18 05:25] LABS: BASOPHILS ABSOLUTE AUTO 0.07 K/mm3 (0.00-0.23); BASOPHILS PERCENT AUTO 0 % (0-2); EOSINOPHILS PERCENT AUTO 0 % (0-6); Hematocrit 33.9 % (33.0-51.0); Hemoglobin 10.6 g/dL (11.5-16.0); IMMATURE GRAN ABSOLUTE AUTO 1.08 K/mm3 (0.00-0.10); IMMATURE GRAN PERCENT AUTO 5 % (0-1); LYMPHOCYTES ABSOLUTE AUTO 1.04 K/mm3 (0.84-5.20); LYMPHOCYTES PERCENT AUTO 5 % (21-46); MONOCYTES ABSOLUTE AUTO 0.94 K/mm3 (0.16-1.47); MONOCYTES PERCENT AUTO 5 % (4-13); Mean Corpuscular HGB 29.9 pg (26.0-34.0); Mean Corpuscular HGB Conc 31.3 g/dL (31.5-36.5); Mean Corpuscular Volume 96 fL (80-100); Mean Platelet Volume 9.4 fL (9.1-12.4); NEUTROPHILS PERCENT AUTO 85 % (41-73); Platelet Count 405 K/mm3 (150-400); RDW Coefficient Variation 13.9 % (11.7-14.2); RDW Standard Deviation 48.7 fL (35.1-46.3); Red Blood Cell Count 3.55 M/mm3 (3.80-5.20); White Blood Cell Count 21.03 K/mm3 (4.00-11.30)
[2020-12-18 05:36] LABS: Anion Gap 5 mmol/L (6-16); Blood Urea Nitrogen 26 mg/dL (8-24); Bun/Creatinine Ratio 51.6 (12.0-20.0); CO2, Blood 34 mmol/L (21-32); Calcium, Blood 8.7 mg/dL (8.5-10.1); Chloride, Blood 93 mmol/L (98-108); Glomerular Filtration Rate >60 (60-); Glucose, Blood 154 mg/dL (70-99); Magnesium, Blood 2.4 mg/dL (1.6-2.4); Phosphorus, Blood 3.9 mg/dL (2.5-4.9); Potassium, Blood 4.2 mmol/L (3.5-5.5); Sodium, Blood 132 mmol/L (136-145)
--- NOTE | 2020-12-18 07:55 | NUR ---
ASSUMED CARE RECEIVED REPORT FROM DOROTHEA WALDEN. PT IS LIGHTLY SEDATED ON VENTILATOR, CALM AND COOPERATIVE, SLEEPING, BUT QUICK TO WAKE UP TO VERBAL STIMULI. CURRENT SEDATION IS PROPOFOL AT 35 MCG/KG/MIN. VENT SETTINGS: AC 15/400/5/45%. RATE IS 24-28, PEAK PRESSURES LOW 20s. SINUS TACH, RATE LOW 100s; BP STABLE 145/68, 108; SPO2 93%, TEMP 99.1F. SWB RESTRAINTS SECURED TO PT AND BED. RIGHT IJ CVC SITE LOOKS CDI. TF IS VITAL HIGH PROTEIN INFUSING AT 25 ML/HR, WITH Q4H 30 ML WATER FLUSHES, VIA OG TUBE. GIL IS PATENT AND DRAINING LIGHT YELLOW (ALMOST A PALE LIGHT GREEN). BED LOW AND LOCKED.
--- NOTE | 2020-12-18 13:12 | NUR ---
UPDATE NO ACUTE EVENTS THUS FAR, PT IS AWAKE, USING THE CALL LIGHT TO OPERATE THE TV. SHE CAN SHAKE HER HEAD YES AND NO TO ANSWER YES/NO QUESTIONS. SHE DENIES PAIN, AND ANXIETY. PROPOFOL AT 35 MCG/KG/MIN. DR. GILBERT SWITCHED PT TO SPONTANEOUS PS MODE 07/29, PT IS SITTING UPRIGHT IN BED BREATHING 38/MIN WITH 88% ON FIO2 45%. CONSIDERING LEAVING PT INTUBATED FOR ANOTHER DAY. WILL CONTINUE TO MONITOR PT's RESPIRATORY STATUS.
--- NOTE | 2020-12-18 14:39 | NUR ---
EXTUBATION DR. GILBERT INSTRUCTED DANTE BURDEN AND THIS RN TO EXTUBATE. TF WAS TURNED OFF, PROPOFOL ALSO TURNED OFF. PT EXTUBATED AT 1337, AND WAS PLACED ON BIPAP 12/, 60% - SPO2 WAS LOW 80s UPON EXTUBATION BUT NOW AT 91%. HR IN THE 90s, BP STABLE, TO SLIGHTLY ELEVATED. BED LOW AND LOCKED.
--- NOTE | 2020-12-18 19:30 | NUR ---
END OF SHIFT PT PLACED ON 14L OF HIGH FLOW NC AT 1730. PT HAS HAD SPO2 IN THE 90-91% RANGE, AND WHEN COUGHING OR 'BLOWING NOSE' IT WILL DROPE TO 87-88% - BUT SHE RECOVERS WELL. SHE IS CALM, COOPERATIVE, ALERT, SLOW TO RESPOND, AND ORIENTED TO SELF, SURROUNDINGS, SITUATION, AND YEAR. SHE HAS A HORSE VOICE, AND DOESN'T TALK A WHOLE LOT, BUT HAS BEEN COMPLETELY APPROPRIATE AND EVEN SHOWING SOME SIGNS OF HUMOR WITH HER SISTER DURING VISITATION HOURS. AFTER BEING EXTUBATED AROUND 1430, PT WAS ON BIPAP 12/5, 60%, PT WAS ABLE TO MAINTAIN SPO2 > 90%. RR WAS 30-40, BUT WHEN ASKED IF SHE WAS ANXIOUS, SOB OR IN PAIN, SHE DENIED IT AND SHE CONTINUED TO LOOK CALM. PT STARTED NEEDING TO COUGH MORE, AND BLOW HER NOSE. PHER COUGH HAS BEEN WEAK, BUT IS GETTING STRONGER THE DAY HAS GONE. CURRENTLY HAVING NO COMPLAINTS, RECEIVING A NEBULIZER TREATMENT FROM RT, WATCHING TV. HER SISTER WAS VISITING TODAY AND WAS UPDATED ON CONDITION. BED IS LOW AND LOCKED. CALL LIGHT WITHIN REACH.
--- NOTE | 2020-12-18 20:15 | NUR ---
ASSESSMENT/ASSUMED CARE PT SITTING UP IN BED WATCHING TV. PT DENIES PAIN OR DISCOMFORT. ANSWERING QUESTIONS APPROP. LUNGS CLEAR BUT DECREASED IN THE BASES ON 14 LITERS VIA HIGH FLOW NC. PT WITH PRODUCTIVE COUGH. COUGHING UP THIN CLEAR SPUTUM AND USING SUCTIONS. HEART RATE REGULAR. ASSISTING WITH TURNING. BT+ BUT HYPOACTIVE. BEDSIDE SWALLOW EVAL DONE. PT STARTED ON CLEAR LIQUID DIET. NO COUGHING OR CHOCKING NOTED. IV CENTRAL LINE TO RIGHT IJ DRSG INTACT. NS AT 10 ML/HR. GIL CATH PATENT AND DRAINING CLEAR YELLOW URINE. PT ENCOURAGED TO C&DB. PT REQUESTING FLU VACCINE, NEW ORDER PLACED.
--- NOTE | 2020-12-18 23:36 | NUR ---
REASSESSMENT PT SITTING UP IN BED. RT PLACED PT ON BIPAP 12/5 FIO2 50%.
--- NOTE | 2020-12-19 01:15 | NUR ---
BIPAP PT TAKEN OFF BIPAP AND PLACED ON 14 LITERS HIGH FLOW NC. ORAL CARE DONE
--- NOTE | 2020-12-19 01:50 | NUR ---
BIPAP SPO2 DOWN TO THE 80'S. PT PLACED BACK ON BIPAP 12/5 FIO2 50%. TOLERATING WELL.
--- NOTE | 2020-12-19 04:00 | NUR ---
REASSESSMENT CALL TO DR CARTWRIGHT REGARDING HTN. OBTAINED ORDER FOR HYDRALAZINE 10 MG PO FOR BP 191/83 (120) HEART RATE 80. PT TAKEN OFF BIPAP AND PLACED ON 14 LITER O2 VIA HIGH FLOW NC. REPOSITIONED AND ORAL CARE DONE.
[2020-12-19 05:16] LABS: Hematocrit 37.4 % (33.0-51.0); Hemoglobin 11.5 g/dL (11.5-16.0); Mean Corpuscular HGB 29.7 pg (26.0-34.0); Mean Corpuscular HGB Conc 30.7 g/dL (31.5-36.5); Mean Corpuscular Volume 97 fL (80-100); Mean Platelet Volume 9.1 fL (9.1-12.4); Platelet Count 384 K/mm3 (150-400); RDW Standard Deviation 49.4 fL (35.1-46.3); Red Blood Cell Count 3.87 M/mm3 (3.80-5.20)
[2020-12-19 05:41] LABS: Anion Gap 3 mmol/L (6-16); Blood Urea Nitrogen 30 mg/dL (8-24); Bun/Creatinine Ratio 61.5 (12.0-20.0); CO2, Blood 35 mmol/L (21-32); Chloride, Blood 97 mmol/L (98-108); Creatinine, Blood 0.49 mg/dL (0.40-1.00); Glomerular Filtration Rate >60 (60-); Glucose, Blood 130 mg/dL (70-99); Potassium, Blood 4.5 mmol/L (3.5-5.5); Sodium, Blood 135 mmol/L (136-145)
--- NOTE | 2020-12-19 05:59 | NUR ---
SHIFT SUMMARY PT SITTING UP IN BED ON PHONE. DENIES PAIN OR DISCOMFORT. PT ON 14 LITER HIGH FLOW NC AT THIS TIME. USED BIPAP DURING THE NIGHT OFF AND ON 09/28 FIO2 50%. MED WITH HYDRALAZONE 10MG FOR HTN, WITH GOOD RESULTS. BEDSIDE SWALLOW EVAL DONE, PT INCREASED TO CLEAR LIQUID DIET. TAKING PO WITHOUT DIFFICULTY. NO ACUTE CHANGES. PT ASSISTING WITH TURNING. REPORT TO ON COMING NURSE.
--- NOTE | 2020-12-19 08:00 | NUR ---
ASSUMED CARE RECEIVED REPORT FROM DOROTHEA GARCIA. PT IS AWAKE, ALERT AND ORIENTED X 4 SITTING UP IN FOWLERS POSITION. SHE DENIES PAIN, NAUSEA, AND SOB AT REST. SHE WAS ON BIPAP 12/5, 50% BIPAP, BUT IS NOW ON 14L HFNC, SPO2 90-91%. PT IS HYPERTENSIVE, DR. CHERRY AND VLADIMIR AWARE. RESTARTING LISINOPRIL THIS AM. SHE IS IN SINUS TO SINUS TACH 90-110. GIL CATHETER IS PATENT AND DRAINING LIGHT YELLOW/GREEN URINE. BED LOW AND LOCKED. CALL LIGHT WITHIN REACH.
--- NOTE | 2020-12-19 10:49 | NUR ---
UPDATE PT CONTINUES TO VENTILATE WELL ON 14L HFNC WITH HUMIDITY. SPO2 91-93%. SHE DENIES SOB AT REST, AND DURING HER BED BATH - FOR A SOMEWHAT PRLONGED PERIOD OF TIME HAD TO LAY FLAT, AND SHE WAS ABLE TO MAINTAIN HER SPOW IN LOW 90s ON THE SAME AMOUNT OF O2. A FLUTTER VALVE AND IS WAS GIVEN TO HER AND SHE WAS "REFRESHED" ON HOW TO USE THEM BY THIS RN. SHE STATED SHE HAS HAD EXPERIENCE WITH BOTH THESE TOOLS, SHE WAS ABLE TO VERBALIZE. SHE IS MOTIVATED USING THE FLUTTER VALVE, SHE HAS A CONGESTED, BUT SOMEWHAT WEAK COUGH. SHE WAS ORDERED FLONASE FOR HER NASAL CONGESTION, TAKING HER FIRST DOSE THIS MORNING. DIET IS ADVANCED TOLERATED AND IS TOLERATING CLEAR LIQUIDS WELL - SO IS NOW ON FULL LIQUIDS FOR LUNCH. WILL CONTINUE TO MONITOR. BED LOW AND LOCKED. CALL LIGHT WITHIN REACH.
--- NOTE | 2020-12-19 13:03 | NUR ---
UPDATE NO MAJOR CHANGES. PT IS DOING WELL ON 14L HFNC, SPO2 90-91%, RR IS SLIGHTLY TACHYPENIC BUT PT IS CALM, AND DENIES SOB AT REST. SOMETIMES SATs WILL DROP BUT THE PT IS USUALLY BLOWING HER NOSE, EATING/DRINKING, OR THE NC HAS FALLEN OUT OF HER NOSE SLIGHTLY. CURRENTLY PHYSICAL THERAPY IS WORKING WITH PT.
--- NOTE | 2020-12-19 18:30 | NUR ---
END OF SHIFT. NO MAJOR EVENTS T/O SHIFT. PT WORKED WITH PHYSICAL THERAPY AND OCCUPATIONAL THERAPY, GOT UP TO CHAIR WITH +1 ASSIST AND WALKER. REMAINS ON 14L HFNC, WITH HUMIDITY. SPO2 PRIMARILY 90-91% AT REST, AND WILL DROP SLIGHTLY WHEN EATING, BLOWING HER NOSE, AND WHEN IT IS ACCIDENTALLY OUT OF HER NOSE NONINTENTIONALLY. IT WILL DROP TO MID 80s. SINUS RHYTHM, CONTROLLED RATE, PT INTERMITTENTLY HAS BEEN HYPERTENSIVE T/O DAY - STARTED LISINOPRIL THIS MORNING (HOME MED), AND LOPRESSOR WAS IPO NCREASED TO 50 MG (WAS 25 MG, AND HOME DOSE IS 100MG) FIRST DOSE OF THAT WILL BE THIS EVENING. PT HAS PRN HYDRALAZINE PO IF NEEDED, NO DOSES GIVEN TODAY. PT CONTINUES TO DENY CHEST PAIN, SOB (AT REST), NAUSEA, AND ANY DISCOMFORT. SHE HAS BEEN EDUCATED ON AND BEEN USING THE IS AND FLUTTER VALVE T/O SHIFT. HAS A OCCASSIONAL CONGESTED, BUT SOMEWHAT HARSH COUGH. AT TIMES HAVING DIFFICULTY COUGHING STUFF UP. HER NASAL CAVITY HAS BEEN CONGESTED, CAUSING PT TO FREQUENTLY BLOW HER NOSE - FLONASE WAS ORDERED TODAY. MULTIPLE BREATHING TREATMENTS T/O SHIFT BY RT. DIET WAS ADVANCED TOLERATED, CLEAR LIQUIDS FOR BREAKFAST, FULL LIQUIDS FOR LUNCH AND SOFT (FINGER FOODS) FOR DINNER. SWALLOWING FINE, DRINKING LIQUIDS FINE - NO SIGNS OF ASPIRATION. PT PREFERS TO SIT IN HIGH FOWLERS T/O DAY. BED LOW AND LOCKED. CALL LIGHT WITHIN REACH.
--- NOTE | 2020-12-19 20:45 | NUR ---
ASSESSMENT/ASSUMED CARE PT SITTING UP IN BED WATCHING TV AND USING PHONE. PT STATES,"I'M FEELING SO MUCH BETTER". PT DENIES PAIN OR DISCOMFORT. LUNGS DECREASED THROUGHOUT. PT ON 14 LITERS HIGH FLOW NC. SPO2 DROPS WHEN PT REMOVES O2 TO BLOW NOSE, SLOW TO BRING SPO2 UP AFTER REPLACING O2. SOB NOTED WITH ACTIVITY, OCC PRODUCTIVE COUGH. HEART RATE REGULAR. BP STABLE. EDEMA TO BILAT LOWER EXT. BT+ HYPOACTIVE. DENIES N/V. CENTRAL LINE TO RIGHT IJ DRSG INTACT, SITE CLEAR. FLUSHING WITHOUT DIFFICULTY. GIL CATH PATENT DRAINING CLEAR YELLOW URINE. HS MEDS GIVEN AND PT REPOSITIONED.
--- NOTE | 2020-12-19 23:23 | NUR ---
BIPAP RT HERE PLACING PT ONTO BIPAP. BIPAP SETTINGS 12/5 FIO2 50%. PT REPOSITIONED. LUNGS CONT DECREASED THROUGHOUT.
--- NOTE | 2020-12-20 03:58 | NUR ---
PT SITTING UP IN BED. DENIES PAIN OR DISCOMFORT. LABS DRAWN VIA CENTRAL LINE. VSS. PT STATES,"I DON'T WANT TO TURN RIGHT NOW, I'M COMFORTABLE. BUT PUT ME DOWN FOR THE 0700 COFFEE". PT ON 14 LITERS HIGH FLOW NC. RESTING QUIETLY.
[2020-12-20 04:08] LABS: Hematocrit 39.2 % (33.0-51.0); Hemoglobin 11.7 g/dL (11.5-16.0); Mean Corpuscular HGB 29.7 pg (26.0-34.0); Mean Corpuscular HGB Conc 29.8 g/dL (31.5-36.5); Mean Corpuscular Volume 100 fL (80-100); Mean Platelet Volume 8.9 fL (9.1-12.4); Platelet Count 336 K/mm3 (150-400); RDW Coefficient Variation 13.6 % (11.7-14.2); RDW Standard Deviation 50.1 fL (35.1-46.3); Red Blood Cell Count 3.94 M/mm3 (3.80-5.20); White Blood Cell Count 14.72 K/mm3 (4.00-11.30)
[2020-12-20 04:29] LABS: Anion Gap 0 mmol/L (6-16); Blood Urea Nitrogen 24 mg/dL (8-24); Bun/Creatinine Ratio 47.8 (12.0-20.0); CO2, Blood 37 mmol/L (21-32); Calcium, Blood 8.8 mg/dL (8.5-10.1); Chloride, Blood 97 mmol/L (98-108); Glomerular Filtration Rate >60 (60-); Glucose, Blood 144 mg/dL (70-99); Potassium, Blood 5.2 mmol/L (3.5-5.5); Sodium, Blood 134 mmol/L (136-145)
--- NOTE | 2020-12-20 05:50 | NUR ---
SHIFT SUMMARY PT AWAKE MOST OF THE NIGHT. SITTING UP IN BED ON THE PHONE AT THIS TIME. DENIES PAIN OR DISCOMFORT. MOVING SELF AROUND IN BED. PT ON 14 LITERS HIGH FLOW NC AT THIS TIME. USED BIPAP FOR ONE HOUR DURING THE NIGHT. VSS. NO ACUTE CHANGE. REPORT TO ON COMING NURSE.
[2020-12-20 05:52] LABS: BAND PERCENT MAN 2 % (0-8); BASOPHILS PERCENT MAN 0 % (0-2); EOSINOPHILS PERCENT MAN 0 % (0-6); LYMPHOCYTES ABSOLUTE MAN 0.73 K/mm3 (0.84-5.20); LYMPHOCYTES PERCENT MAN 5 % (21-46); METAMYELOCYTE ABSOLUTE MAN 0.29 K/mm3 (0.00-0.00); METAMYELOCYTE PERCENT MAN 2 % (0-0); MONOCYTES ABSOLUTE MAN 0.73 K/mm3 (0.16-1.47); MONOCYTES PERCENT MAN 5 % (4-13); MYELOCYTE ABSOLUTE MAN 0.44 K/mm3 (0.00-0.00); MYELOCYTE PERCENT MAN 3 % (0-0); NEUTROPHILS ABSOLUTE MAN 12.51 K/mm3 (1.96-9.15); SEG NEUTROPHILS PERCENT MAN 83 % (41-73); TOTAL CELLS COUNTED 100
--- NOTE | 2020-12-20 08:00 | NUR ---
ASSUMED CARE BEDSIDE REPORT RECIEVED. PT IS LAYING IN BED AWAKE, ALERT, AND ORIENTED. PT ANSWERS QUESTIONS APPROPRIATELY. PT DENIES PAIN OR DISCOMFORT. VITAL SIGNS STABLE. PT ON 14L O2 VIA [place] NC. PT REPORTS DYSPNEA WITH EXERTIONS, BUT NONE AT REST. CENTRAL LINE TO [facility] C/D/I. GIL IN PLACE WITH CLEAR YELLOW OUTPUT NOTED. PT MOVES ALL EXTREMITIES WELL. WILL CONTINUE TO MONITOR.
--- NOTE | 2020-12-20 16:28 | NUR ---
TRANSFER TO PCU REPORT CALLED TO CARLOS PIEDRA. ALL QUESTIONS ANSWERED. PT TAKEN BY BED TO PCU 7. ALL PT MEDS AND BELONGINGS TAKEN WITH PT.
--- NOTE | 2020-12-20 16:52 | NUR ---
PT ARRIVED TO PCU 7 VIA BED FROM ICU, SHE WAS PULLED OVER TO PCU BED, AND SETTLED INTO HER ROOM WITH HER TABLE SET UP AND CALL LIGHT IN REACH, NO NEEDS OR COMPLAINTS AT THIS TIME.
--- NOTE | 2020-12-20 18:57 | NUR ---
no acute changes this shift.
--- NOTE | 2020-12-21 07:46 | NUR ---
SHIFT SUMMARY: TATIANA REPORTS SLEEPING WELL DURING THE NIGHT. INTERESTINGLY, HER O2 SATURATIONS INCREASED WHILE SHE WAS SLEEPING. SHE DOES DESATURATE WITH MOVEMENT AND SITTING UP IN BED. GIL PATENT. SHE REPORTS FEELING WELL THIS MORNING. VSS, NO ACUTE EVENTS OVERNIGHT. SHE USES THE CALL LIGHT APPROPRIATELY. SHE IS TOLERATING PO INTAKE WELL. SHE IS LYING IN BED WITH HER CALL LIGHT IN REACH. REPORT GIVEN TO DAY SHIFT RN.
--- NOTE | 2020-12-21 08:00 | NUR ---
pt sitting on the side of the bed, denies complaints. states her night was ok, a/ox3, cooperative with care, follows commands well, lungs are dim t/o, resp even and unlabored, no cough noted, hrr, tele in place running sr per monitor, see strip, no edema noted, ppp+2, cap refill <3sec, vs stable, afebrile, iv site is clear and patent, btx4, abd flat soft nontender, voids via huerta, skin c/w/d, jessica doe, call light in reach.
--- NOTE | 2020-12-21 12:52 | NUR ---
pt was able to take a shower with fuels sales representative assistance. reports she feels much better after, did turn 02 up while in the shower, call light in reach.
--- NOTE | 2020-12-21 17:50 | NUR ---
PT DOING WELL, IS ABLE TO EAT WITHOUT DROPPING HER SATS. IS CURRENTLY ON6 LITERS, NO FURTHER CHANGES THIS SHIFT. CALL LIGHT IN REACH.
--- NOTE | 2020-12-21 22:00 | NUR ---
PERSONAL PHONE RINGING IN PT'S ROOM STATED "BROTHER." STATED "I DON'T WANT TO TALK TO HIM." NOTIFIED PT THAT BROTHER WAS CALLING TO GET AN UPDATE; ASKED IF CALL SHOULD BE TRANSFERED INTO ROOM; PT REFUSED, STATED "NO" TO TALK TO HIM AND "NO" TO SHARE INFO OR UPDATES.
--- NOTE | 2020-12-21 22:18 | NUR ---
ASSUMED CARE PT ALERT AND ORIENTED; IN ROOM. VITALS ARE STABLE WITH SATS >97% ON 5L O2 NC. PT IS A STANBY ASSIST TO THE BATHROOM. PT STATED THAT SHE CAN GET UP BY HERSELF WHEN NEEDED; REINFORCED SAFETY AND FALL RISK, TO CALL WHEN NEEDING ASSISTANCE AND BEFORE GETTING UP TO THE BATHROOM. PT DENIES PAIN. WILL CONTINUE TO MONITOR.
--- NOTE | 2020-12-22 05:35 | NUR ---
SHIFT SUMMARY PT PLEASANT. ALERT AND ORIENTED. NO ACUTE CHANGES; VITALS HAVE BEEN STABLE. SATS OF >92% ON 5L NC. DENIES SOB OR CHEST PAIN. PT IS A STANDBY ASSIST WITH FWW TO THE BATHROOM AND USES CALL LIGHT APPROPIATELY. PT HAS BEEN AWAKE IN RECLINER DURING THE NIGHT BECAUSE "BED MAKES ME UNCOMFORTABLE."
--- NOTE | 2020-12-22 17:58 | NUR ---
SHIFT SUMMARY; ASSUMED CARE AT 0700. SITS IN CHAIR AT BEDSIDE ALL OF SHIFT. 5L 02 VIA ROSANA A/Zan/OX4, INDEPEDANT IN ROOM. NO ACUTE MEDICAL CHANGES, WILL CONTINUE TO MONITOR AND TREAT UNTIL CHANGE OF SHIFT.
--- NOTE | 2020-12-22 21:16 | NUR ---
ASSUMED CARE PT ALERT AND ORIENTED IN ROOM. PT IS ON 5L O2 VIA NC WITH SATS >92%. UP WITH SB ASSIST TO THE BATHROOM USING FWW. DENIES SOB OR CHEST PAIN. VITALS ARE STABLE WILL CONTINUE TO MONITOR
[2020-12-23 04:58] LABS: Anion Gap 2 mmol/L (6-16); Blood Urea Nitrogen 19 mg/dL (8-24); Bun/Creatinine Ratio 43.4 (12.0-20.0); CO2, Blood 34 mmol/L (21-32); Chloride, Blood 95 mmol/L (98-108); Creatinine, Blood 0.44 mg/dL (0.40-1.00); Glomerular Filtration Rate >60 (60-); Glucose, Blood 93 mg/dL (70-99); Phosphorus, Blood 3.4 mg/dL (2.5-4.9); Sodium, Blood 131 mmol/L (136-145)
--- NOTE | 2020-12-23 06:40 | NUR ---
PT A/O. NO ACUTE CHANGES. VITALS STABLE. PT AMBULATES WITH SBA TO BATHROOM WITH FWW. SHE IS ON 5L NC. SHE HAS BEEN A BIT ANXIOUS THROUGH OUT THE NIGHT BECAUSE SHE IS WWANTING TO GOT HOME.
--- NOTE | 2020-12-23 19:39 | NUR ---
SUMMARY PT IS CUURENTLY ON 5 L NC. SPO2 BETWEEN 89-93%. PT HAS PULLED HER O2 OFF A FEW TIMES, AND HAS ALSO BEEN FOUND WITHOUT HER O2 IN PLACE DUE TO ALRM ON CONT BIOX. PT STATES SHE DOES NOT REMEMBER DOING THIS. OT APPEARS TO BE A&O X4 OTHERWISE. PT HAS USED HER I/S AND FLUTTER VALVE TODAY. PT/OT HAS BEEN IN. PT IS TOLERATING PO INTAKE. PT REMINDED TO USE CALL LIGHT FOR SAFETY. REPORT GIVEN TO RAMON PIEDRA
[2020-12-24 04:44] LABS: Albumin, Blood 2.8 g/dL (3.4-5.0); Anion Gap 2 mmol/L (6-16); Blood Urea Nitrogen 18 mg/dL (8-24); Bun/Creatinine Ratio 36.2 (12.0-20.0); CO2, Blood 38 mmol/L (21-32); Chloride, Blood 95 mmol/L (98-108); Glomerular Filtration Rate >60 (60-); Glucose, Blood 104 mg/dL (70-99); Phosphorus, Blood 3.4 mg/dL (2.5-4.9); Potassium, Blood 3.8 mmol/L (3.5-5.5); Sodium, Blood 135 mmol/L (136-145)
--- NOTE | 2020-12-24 07:34 | NUR ---
SHIFT SUMMARY PT WAS ALERT AND ORIENTED, CONFUSED AT TIMES AND DID NOT USE CALL LIGHT APPROPRIATELY, SHE WOULD NOT CALL BEFORE GETTING OUT OF HER CHAIR. PT SAT UP IN A CHAIR T/O THE NIGHT WITH MINIMAL SLEEP. SHE WAS ON 5LPM NC WITH 02 SATS LOW 90'S, SHE WOULD DESAT TO 70-80'S WITH EXERTION BUT QUICKLY RECOVER WHEN RESTING. VITALS WERE STABLE WITH BP 130'S SYSTOLIC AND HR 60-70'S. PT HAD AN UNEVENTFUL NIGHT.
--- NOTE | 2020-12-24 17:15 | NUR ---
SHIFT SUMMARY PT A&Ox4; CALM AND COOPERATIVE WITH CARE. PT UP IN CHAIR AND IND IN ROOM. PT SOB WITH EXERTIONS, ON 5L O2 VIA NC THIS AM; TITRATED TO 4L O2. PT DENIES PAIN, CHEST PAIN, NAUSEA AND DIZZINESS. VSS. NO OTHER ACUTE CHANGES NOTED. WILL CONTINUE TO MONITOR UNITL REPORT GIVEN TO ONCOMING RN.
--- NOTE | 2020-12-25 04:00 | NUR ---
PT IS REFUSING TO WEAR THE PULSE BIOX FOR THE REMAINDER OF THE NIGHT - FORMED SIGNED FROM RT - IN FRONT ON CHART. PT THEN UP TO THE SHOWER. WILL RETAKE VS AFTER SHOWER - SEE VS. PT IS ANTICIPATING GOING HOME TODAY.
[2020-12-25 04:25] LABS: Anion Gap 3 mmol/L (6-16); Blood Urea Nitrogen 18 mg/dL (8-24); Bun/Creatinine Ratio 40.4 (12.0-20.0); CO2, Blood 37 mmol/L (21-32); Calcium, Blood 9.2 mg/dL (8.5-10.1); Chloride, Blood 95 mmol/L (98-108); Creatinine, Blood 0.45 mg/dL (0.40-1.00); Glomerular Filtration Rate >60 (60-); Glucose, Blood 98 mg/dL (70-99); Potassium, Blood 3.8 mmol/L (3.5-5.5); Sodium, Blood 135 mmol/L (136-145)
--- NOTE | 2020-12-25 05:09 | NUR ---
SHIFT SUMMARY - PT SLEPT FOR APPX 3 HOURS TONIGHT - PT IN RECLINER CHAIR WHILE SLEEPING. PT HAS BEEN UP INDEPENDENTLY IN THE ROOM. PT SHOWERED THIS AM. PT MEDICATED X1 WITH PO HYDRALAZINE - SEE EMAR FOR PARAMETERS. PT IS ANTICIPATING DISCHARGE HOME TODAY. CALL LIGHT WITHIN REACH. FLUIDS AT BEDSIDE. WILL CONTINUE TO MONITOR UNTIL AM SHIFT CHANGE.
--- NOTE | 2020-12-25 06:28 | NUR ---
PT'S BP ELEVATED THIS AM - SEE VS - FOLLOW UP WITH HYDRALAZINE PO AND REPEAT VS.
[2020-12-25] MEDS ORDERED: IPRAT-ALBUT 0.5-3 ML INH (10:50)
[2020-12-25] MEDS ORDERED: SENN187 PO (10:50)
[2020-12-25] MEDS ORDERED: FURO20 PO (10:51)
[2020-12-25] MEDS ORDERED: BUDE.25 INH (10:51)
[2020-12-25] MEDS ORDERED: Prednisone10 MG PO ×3 (10:52→10:54)
--- NOTE | 2020-12-25 13:35 | NUR ---
DISCHARGE SUMMARY PT A&Ox4; CALM AND COOPERATIVE WITH CARE. PT UP IN CHAIR FOR MAJORITY OF SHIFT. IND IN ROOM. PT DENIES PAIN, CHEST PAIN/PRESSURE, SOB, NASUEA AND DIZZINESS. HOME O2 EVAL COMPLETED, PT ON 4L O2 VIA NC, THIS AM ATTMEPTED TO TITRATE PT TO 3L O2 VIA NC, RT INCREASED TO 4L DUE TO HOME O2 EVALUATION. ELEVATED BP THIS AM, TRENDING DOWN. OTHER VSS. NO OTHER ACUTE CHANGES NOTED. SISTERS AT BEDSIDE FOR EDUCATION ON DISCHARGE INSTRUCTIONS, FOLLOW UP APPOINTMENTS AND MEDCIATIONS. PRESCRIPTIONS FAXED TO [facility]. PT SISTERS BROUGHT IN TWO TANKS, BOTH TANKS WERE EMPTY; RT AT BEDSIDE TO DO EDUCATIONS ON O2 TANKS; [facility] CONTACT TO [facility] FOR TRANSPORT. PT LEFT ROOM VIA WHEELCHAIR AT 1335.
[2021-01-28] MEDS ORDERED: POTCHL20ER PO (14:45)
[2021-01-28] MEDS ORDERED: Catapres-Tts 11 EACH TOP (14:45)
[2021-01-29] MEDS ORDERED: METO50 PO (18:26)
[2021-02-01] MEDS ORDERED: AMLO5 PO (12:19)
[2021-02-01] MEDS ORDERED: AIRDUO RESPICL1 EAC4 INH (12:21)
[2021-02-01] MEDS ORDERED: LOSA50 PO (12:22)
[2021-02-01] MEDS ORDERED: DELTASONE20 MG PO (12:23)
[2021-02-01] MEDS ORDERED: SENN187 PO (12:25)
[2021-02-01] MEDS ORDERED: SPIR25 PO (12:26)
[2021-02-01] MEDS ORDERED: TIOT18 INH (12:28)
== END 2020-12-25 13:35 | disposition home or self-care (01) | DRG 871 ==
LOC: ER 19:29 → ICUW 21:48 → ICUE 21:48 → PCU 12-20 16:46
PROVIDERS: Emergency Medicine; Internal Medicine; Internal Medicine Critical Care Medicine; Nurse Practitioner Acute Care; ADMIT Internal Medicine
PROC: 0BH18EZ Insertion of Endotracheal Airway into Trachea, Via Natural or Artificial Opening Endoscopic (ICD-10-PCS; principal; 2020-12-14)
PROC: 5A1945Z Respiratory Ventilation, 24-96 Consecutive Hours (ICD-10-PCS; 2020-12-14)
PROC: 02HV33Z Insertion of Infusion Device into Superior Vena Cava, Percutaneous Approach (ICD-10-PCS; 2020-12-14)
PROC: 3E043XZ Introduction of Vasopressor into Central Vein, Percutaneous Approach (ICD-10-PCS; 2020-12-14)
DX: A41.01 Sepsis due to Methicillin susceptible Staphylococcus aureus (principal); J96.21 Acute and chronic respiratory failure with hypoxia; I50.33 Acute on chronic diastolic (congestive) heart failure; I21.A1 Myocardial infarction type 2; J96.22 Acute and chronic respiratory failure with hypercapnia; E87.3 Alkalosis; E87.1 Hypo-osmolality and hyponatremia; I16.0 Hypertensive urgency; J43.9 Emphysema, unspecified; Z87.891 Personal history of nicotine dependence; I11.0 Hypertensive heart disease with heart failure; Z20.822 Contact with and (suspected) exposure to COVID-19; Z99.81 Dependence on supplemental oxygen; B95.62 Methicillin resistant Staphylococcus aureus infection as the cause of diseases classified elsewhere; J40 Bronchitis, not specified as acute or chronic; Z78.1 Physical restraint status
CPT/HCPCS: 0241U; 31500; 36415; 36600; 51702; 71045; 80048; 80053; 80069; 81001; 82330; 82550; 82803; 82947; 83605; 83735; 83880; 84100; 84484; 85025; 85027; 87040; 87070; 87077; 87086; 87147; 87186; 87205; 93005; 93010; 93308; 93321; 94002; 94003; 94640; 94644; 94660; 94761; 94762; 96365-59; 96366-59; 96368; 96375-59; 97110; 97116; 97162; 97166; 97530; 97535; 99285-25; A9270; C1751; C9113; G0008; J0696; J1650; J1940; J1956; J2060; J2250; J2370; J2704; J2920; J2930; J3010; J3370; J7030; J7040; J7050; J7060; P9046; Q2038

== ENCOUNTER 2021-01-06 14:04 | Emergency (ER) | payer OTHER ==
[~2021-01-06] VITALS: Ht 160 cm; Wt 94.3 kg
[~2021-01-06 14:04] MED LIST changes: +ALBU2.5V5 INH; +ALBU90OI INH; +BUDE.25 INH; +FURO20 PO; +METO100 PO; +OMEP20ER PO; +POTCHL20ER PO; +Prednisone10 MG PO; +SENN187 PO; +SPIRIVA RESPIMAT4 G3 INH; +ZESTRIL40 M1 PO
[2021-01-06 14:40] LABS: BASOPHILS ABSOLUTE AUTO 0.02 K/mm3 (0.00-0.23); BASOPHILS PERCENT AUTO 0 % (0-2); EOSINOPHILS ABSOLUTE AUTO 0.01 K/mm3 (0.00-0.68); EOSINOPHILS PERCENT AUTO 0 % (0-6); Hematocrit 40.6 % (33.0-51.0); IMMATURE GRAN ABSOLUTE AUTO 0.05 K/mm3 (0.00-0.10); IMMATURE GRAN PERCENT AUTO 1 % (0-1); LYMPHOCYTES ABSOLUTE AUTO 0.67 K/mm3 (0.84-5.20); LYMPHOCYTES PERCENT AUTO 7 % (21-46); MONOCYTES ABSOLUTE AUTO 0.55 K/mm3 (0.16-1.47); MONOCYTES PERCENT AUTO 5 % (4-13); Mean Corpuscular HGB 29.5 pg (26.0-34.0); Mean Corpuscular HGB Conc 29.6 g/dL (31.5-36.5); Mean Corpuscular Volume 100 fL (80-100); Mean Platelet Volume 9.7 fL (9.1-12.4); NEUTROPHILS ABSOLUTE AUTO 9.03 K/mm3 (1.96-9.15); NEUTROPHILS PERCENT AUTO 87 % (41-73); Platelet Count 277 K/mm3 (150-400); RDW Coefficient Variation 13.8 % (11.7-14.2); RDW Standard Deviation 50.6 fL (35.1-46.3); Red Blood Cell Count 4.07 M/mm3 (3.80-5.20); White Blood Cell Count 10.33 K/mm3 (4.00-11.30)
[2021-01-06 14:56] LABS: Alanine Aminotransfer (ALT/SGP 25 U/L (12-78); Albumin, Blood 3.1 g/dL (3.4-5.0); Albumin/Globulin Ratio 0.8 (0.8-1.8); Alk Phos 50 U/L (50-136); Anion Gap 2 mmol/L (6-16); Aspartate Aminotrans (AST/SGOT 15 U/L (12-37); Bilirubin, Total 0.3 mg/dL (0.1-1.0); Blood Urea Nitrogen 16 mg/dL (8-24); Bun/Creatinine Ratio 30.6 (12.0-20.0); CO2, Blood 38 mmol/L (21-32); Calcium, Blood 9.2 mg/dL (8.5-10.1); Chloride, Blood 97 mmol/L (98-108); Creatinine, Blood 0.52 mg/dL (0.40-1.00); Globulin, Blood 3.9 g/dL (2.2-4.0); Glomerular Filtration Rate >60 (60-); Glucose, Blood 170 mg/dL (70-99); Potassium, Blood 3.7 mmol/L (3.5-5.5); Sodium, Blood 137 mmol/L (136-145)
[2021-01-28] MEDS ORDERED: Catapres-Tts 11 EACH TOP (14:45)
[2021-01-28] MEDS ORDERED: POTCHL20ER PO (14:45)
[2021-01-29] MEDS ORDERED: METO50 PO (18:26)
[2021-02-01] MEDS ORDERED: AMLO5 PO (12:19)
[2021-02-01] MEDS ORDERED: AIRDUO RESPICL1 EAC4 INH (12:21)
[2021-02-01] MEDS ORDERED: LOSA50 PO (12:22)
[2021-02-01] MEDS ORDERED: DELTASONE20 MG PO (12:23)
[2021-02-01] MEDS ORDERED: SENN187 PO (12:25)
[2021-02-01] MEDS ORDERED: SPIR25 PO (12:26)
[2021-02-01] MEDS ORDERED: TIOT18 INH (12:28)
== END 2021-01-06 17:00 | disposition home or self-care (01) ==
LOC: ER 14:04
PROVIDERS: Emergency Medicine
DX: I83.019 Varicose veins of right lower extremity with ulcer of unspecified site (principal); L97.919 Non-pressure chronic ulcer of unspecified part of right lower leg with unspecified severity; R60.0 Localized edema; J44.9 Chronic obstructive pulmonary disease, unspecified; I11.0 Hypertensive heart disease with heart failure; I50.9 Heart failure, unspecified; Z88.0 Allergy status to penicillin; Z79.899 Other long term (current) drug therapy
CPT/HCPCS: 29580; 71046; 80053; 85025; 93005; 93010; 96374-59; 99284-25; J1940

== ENCOUNTER 2021-01-10 00:43 | Day surgery (SDC) | payer OTHER ==
[2021-01-28] MEDS ORDERED: POTCHL20ER PO (14:45)
[2021-01-28] MEDS ORDERED: Catapres-Tts 11 EACH TOP (14:45)
[2021-01-29] MEDS ORDERED: METO50 PO (18:26)
[2021-02-01] MEDS ORDERED: AMLO5 PO (12:19)
[2021-02-01] MEDS ORDERED: AIRDUO RESPICL1 EAC4 INH (12:21)
[2021-02-01] MEDS ORDERED: LOSA50 PO (12:22)
[2021-02-01] MEDS ORDERED: DELTASONE20 MG PO (12:23)
[2021-02-01] MEDS ORDERED: SENN187 PO (12:25)
[2021-02-01] MEDS ORDERED: SPIR25 PO (12:26)
[2021-02-01] MEDS ORDERED: TIOT18 INH (12:28)
== END 2021-01-10 22:42 | disposition home or self-care (01) ==
LOC: WOUND 00:43
DX: L97.511 Non-pressure chronic ulcer of other part of right foot limited to breakdown of skin (principal); L97.821 Non-pressure chronic ulcer of other part of left lower leg limited to breakdown of skin; L97.311 Non-pressure chronic ulcer of right ankle limited to breakdown of skin; I73.9 Peripheral vascular disease, unspecified; I87.2 Venous insufficiency (chronic) (peripheral); R06.02 Shortness of breath; R60.0 Localized edema; I11.0 Hypertensive heart disease with heart failure; I50.9 Heart failure, unspecified; J44.9 Chronic obstructive pulmonary disease, unspecified; Z88.0 Allergy status to penicillin; Z87.891 Personal history of nicotine dependence
CPT/HCPCS: 87070; 87075; 87077; 87186; 87205; A9270; G0463

== ENCOUNTER 2021-01-10 09:31 | Emergency (ER) | payer OTHER ==
[~2021-01-10] VITALS: Ht 157.5 cm; Wt 94.3 kg
[2021-01-10 10:25] LABS: BASOPHILS ABSOLUTE AUTO 0.06 K/mm3 (0.00-0.23); BASOPHILS PERCENT AUTO 1 % (0-2); EOSINOPHILS ABSOLUTE AUTO 0.34 K/mm3 (0.00-0.68); EOSINOPHILS PERCENT AUTO 3 % (0-6); Hematocrit 36.5 % (33.0-51.0); IMMATURE GRAN PERCENT AUTO 1 % (0-1); LYMPHOCYTES ABSOLUTE AUTO 1.29 K/mm3 (0.84-5.20); LYMPHOCYTES PERCENT AUTO 13 % (21-46); MONOCYTES ABSOLUTE AUTO 0.66 K/mm3 (0.16-1.47); MONOCYTES PERCENT AUTO 7 % (4-13); Mean Corpuscular HGB 29.8 pg (26.0-34.0); Mean Corpuscular HGB Conc 30.1 g/dL (31.5-36.5); Mean Corpuscular Volume 99 fL (80-100); Mean Platelet Volume 9.7 fL (9.1-12.4); NEUTROPHILS ABSOLUTE AUTO 7.73 K/mm3 (1.96-9.15); NEUTROPHILS PERCENT AUTO 76 % (41-73); Platelet Count 303 K/mm3 (150-400); RDW Coefficient Variation 13.9 % (11.7-14.2); RDW Standard Deviation 50.5 fL (35.1-46.3); Red Blood Cell Count 3.69 M/mm3 (3.80-5.20); White Blood Cell Count 10.18 K/mm3 (4.00-11.30)
[2021-01-10 10:46] LABS: Alanine Aminotransfer (ALT/SGP 22 U/L (12-78); Albumin, Blood 2.8 g/dL (3.4-5.0); Albumin/Globulin Ratio 0.7 (0.8-1.8); Alk Phos 50 U/L (50-136); Anion Gap 3 mmol/L (6-16); Aspartate Aminotrans (AST/SGOT 14 U/L (12-37); Bilirubin, Total 0.3 mg/dL (0.1-1.0); Blood Urea Nitrogen 14 mg/dL (8-24); Bun/Creatinine Ratio 24.6 (12.0-20.0); CO2, Blood 35 mmol/L (21-32); Chloride, Blood 99 mmol/L (98-108); Creatinine, Blood 0.57 mg/dL (0.40-1.00); Globulin, Blood 3.8 g/dL (2.2-4.0); Glomerular Filtration Rate >60 (60-); Glucose, Blood 120 mg/dL (70-99); Potassium, Blood 4.3 mmol/L (3.5-5.5); Sodium, Blood 137 mmol/L (136-145); Total Protein, Blood 6.6 g/dL (6.4-8.2); Troponin I <0.015 ng/mL (0.000-0.040)
[2021-01-28] MEDS ORDERED: Catapres-Tts 11 EACH TOP (14:45)
[2021-01-28] MEDS ORDERED: POTCHL20ER PO (14:45)
[2021-01-29] MEDS ORDERED: METO50 PO (18:26)
[2021-02-01] MEDS ORDERED: AMLO5 PO (12:19)
[2021-02-01] MEDS ORDERED: AIRDUO RESPICL1 EAC4 INH (12:21)
[2021-02-01] MEDS ORDERED: LOSA50 PO (12:22)
[2021-02-01] MEDS ORDERED: DELTASONE20 MG PO (12:23)
[2021-02-01] MEDS ORDERED: SENN187 PO (12:25)
[2021-02-01] MEDS ORDERED: SPIR25 PO (12:26)
[2021-02-01] MEDS ORDERED: TIOT18 INH (12:28)
== END 2021-01-10 11:50 | disposition home or self-care (01) ==
LOC: ER 09:31
PROVIDERS: Emergency Medicine
DX: R60.0 Localized edema (principal); Z87.09 Personal history of other diseases of the respiratory system; Z79.52 Long term (current) use of systemic steroids; Z79.51 Long term (current) use of inhaled steroids; Z79.899 Other long term (current) drug therapy; Z88.0 Allergy status to penicillin
CPT/HCPCS: 36415; 71045; 80053; 83880; 84484; 85025; 93005; 93010; 99285-25; A9270

== ENCOUNTER 2021-01-14 00:34 | Day surgery (SDC) | payer OTHER ==
[2021-01-28] MEDS ORDERED: POTCHL20ER PO (14:45)
[2021-01-28] MEDS ORDERED: Catapres-Tts 11 EACH TOP (14:45)
[2021-01-29] MEDS ORDERED: METO50 PO (18:26)
[2021-02-01] MEDS ORDERED: AMLO5 PO (12:19)
[2021-02-01] MEDS ORDERED: AIRDUO RESPICL1 EAC4 INH (12:21)
[2021-02-01] MEDS ORDERED: LOSA50 PO (12:22)
[2021-02-01] MEDS ORDERED: DELTASONE20 MG PO (12:23)
[2021-02-01] MEDS ORDERED: SENN187 PO (12:25)
[2021-02-01] MEDS ORDERED: SPIR25 PO (12:26)
[2021-02-01] MEDS ORDERED: TIOT18 INH (12:28)
== END 2021-01-14 23:15 | disposition home or self-care (01) ==
LOC: WOUND 00:34
DX: L97.512 Non-pressure chronic ulcer of other part of right foot with fat layer exposed (principal); I87.2 Venous insufficiency (chronic) (peripheral); I73.9 Peripheral vascular disease, unspecified; R60.0 Localized edema; S91.001D Unspecified open wound, right ankle, subsequent encounter; S81.802D Unspecified open wound, left lower leg, subsequent encounter; B95.62 Methicillin resistant Staphylococcus aureus infection as the cause of diseases classified elsewhere; B95.2 Enterococcus as the cause of diseases classified elsewhere
CPT/HCPCS: A9270

== ENCOUNTER 2021-01-16 00:28 | Day surgery (SDC) | payer OTHER ==
[2021-01-28] MEDS ORDERED: Catapres-Tts 11 EACH TOP (14:45)
[2021-01-28] MEDS ORDERED: POTCHL20ER PO (14:45)
[2021-01-29] MEDS ORDERED: METO50 PO (18:26)
[2021-02-01] MEDS ORDERED: AMLO5 PO (12:19)
[2021-02-01] MEDS ORDERED: AIRDUO RESPICL1 EAC4 INH (12:21)
[2021-02-01] MEDS ORDERED: LOSA50 PO (12:22)
[2021-02-01] MEDS ORDERED: DELTASONE20 MG PO (12:23)
[2021-02-01] MEDS ORDERED: SENN187 PO (12:25)
[2021-02-01] MEDS ORDERED: SPIR25 PO (12:26)
[2021-02-01] MEDS ORDERED: TIOT18 INH (12:28)
== END 2021-01-16 23:34 | disposition home or self-care (01) ==
LOC: WOUND 00:28
DX: S91.301A Unspecified open wound, right foot, initial encounter (principal); S81.802A Unspecified open wound, left lower leg, initial encounter; S91.301D Unspecified open wound, right foot, subsequent encounter; I73.9 Peripheral vascular disease, unspecified; I87.2 Venous insufficiency (chronic) (peripheral); R06.02 Shortness of breath; R60.9 Edema, unspecified

== ENCOUNTER 2021-01-21 00:23 | Day surgery (SDC) | payer OTHER ==
[2021-01-28] MEDS ORDERED: Catapres-Tts 11 EACH TOP (14:45)
[2021-01-28] MEDS ORDERED: POTCHL20ER PO (14:45)
[2021-01-29] MEDS ORDERED: METO50 PO (18:26)
[2021-02-01] MEDS ORDERED: AMLO5 PO (12:19)
[2021-02-01] MEDS ORDERED: AIRDUO RESPICL1 EAC4 INH (12:21)
[2021-02-01] MEDS ORDERED: LOSA50 PO (12:22)
[2021-02-01] MEDS ORDERED: DELTASONE20 MG PO (12:23)
[2021-02-01] MEDS ORDERED: SENN187 PO (12:25)
[2021-02-01] MEDS ORDERED: SPIR25 PO (12:26)
[2021-02-01] MEDS ORDERED: TIOT18 INH (12:28)
== END 2021-01-21 23:28 | disposition home or self-care (01) ==
LOC: WOUND 00:23
DX: L97.512 Non-pressure chronic ulcer of other part of right foot with fat layer exposed (principal); I87.2 Venous insufficiency (chronic) (peripheral); R60.9 Edema, unspecified; S91.301D Unspecified open wound, right foot, subsequent encounter; S81.802D Unspecified open wound, left lower leg, subsequent encounter; I73.9 Peripheral vascular disease, unspecified; X58.XXXD Exposure to other specified factors, subsequent encounter
CPT/HCPCS: A9270

== ENCOUNTER 2021-01-28 14:27 | Inpatient (IN) | payer OTHER ==
[~2021-01-28] VITALS: Ht 160 cm; Wt 99.1 kg
== END 2021-02-01 13:46 | disposition home or self-care (01) | DRG 291 ==
LOC: ER 14:27 → PCU 17:09
PROVIDERS: ADMIT Internal Medicine
PROC: 5A09357 Assistance with Respiratory Ventilation, Less than 24 Consecutive Hours, Continuous Positive Airway Pressure (ICD-10-PCS; principal; 2021-01-28)
DX: I11.0 Hypertensive heart disease with heart failure (principal); G93.41 Metabolic encephalopathy; J96.21 Acute and chronic respiratory failure with hypoxia; J44.1 Chronic obstructive pulmonary disease with (acute) exacerbation; E87.1 Hypo-osmolality and hyponatremia; E87.2 Acidosis; I50.33 Acute on chronic diastolic (congestive) heart failure; Z20.822 Contact with and (suspected) exposure to COVID-19; K21.9 Gastro-esophageal reflux disease without esophagitis; I34.0 Nonrheumatic mitral (valve) insufficiency; I25.2 Old myocardial infarction; Z90.49 Acquired absence of other specified parts of digestive tract; Z88.0 Allergy status to penicillin; Z79.899 Other long term (current) drug therapy; Z87.891 Personal history of nicotine dependence; Z99.81 Dependence on supplemental oxygen
CPT/HCPCS: 0241U; 36415; 36600; 51701; 71045; 71260; 80048; 80053; 81001; 82803; 83605; 83880; 84145; 84484; 85025; 87040; 93005; 93010; 94640; 94644; 94660; 94760; 94762; 96365; 96367; 96375; 99285-25; A9270; J0360; J0456; J0696; J1644; J1940; J2060; J2930; J7050; J7512; Q9967

== ENCOUNTER 2021-02-04 01:06 | Day surgery (SDC) | payer OTHER ==
[~2021-02-04 01:06] MED LIST changes: +AIRDUO RESPICL1 EAC4 INH; +AMLO5 PO; +Catapres-Tts 11 EACH TOP; +DELTASONE20 MG PO; +LOSA50 PO; +METO50 PO; +SPIR25 PO; +TIOT18 INH
== END 2021-02-04 22:45 | disposition home or self-care (01) ==
LOC: WOUND 01:06
DX: L97.512 Non-pressure chronic ulcer of other part of right foot with fat layer exposed (principal); I87.2 Venous insufficiency (chronic) (peripheral); R60.9 Edema, unspecified; S91.301D Unspecified open wound, right foot, subsequent encounter; S81.802D Unspecified open wound, left lower leg, subsequent encounter; X58.XXXD Exposure to other specified factors, subsequent encounter; I73.9 Peripheral vascular disease, unspecified
CPT/HCPCS: A9270

== ENCOUNTER 2021-02-11 00:03 | Day surgery (SDC) | payer OTHER | END 2021-02-11 22:43 | disposition home or self-care (01) | LOC: WOUND 00:03 | DX: L97.512 Non-pressure chronic ulcer of other part of right foot with fat layer exposed (principal); I87.2 Venous insufficiency (chronic) (peripheral); I73.9 Peripheral vascular disease, unspecified | CPT/HCPCS: A9270 ==

== ENCOUNTER 2021-02-18 00:13 | Day surgery (SDC) | payer OTHER | END 2021-02-18 23:25 | disposition home or self-care (01) | LOC: WOUND 00:13 | DX: L97.512 Non-pressure chronic ulcer of other part of right foot with fat layer exposed (principal); I87.2 Venous insufficiency (chronic) (peripheral); R60.9 Edema, unspecified; S91.301D Unspecified open wound, right foot, subsequent encounter; S81.802D Unspecified open wound, left lower leg, subsequent encounter; X58.XXXD Exposure to other specified factors, subsequent encounter; I73.9 Peripheral vascular disease, unspecified | CPT/HCPCS: A9270 ==

== ENCOUNTER 2021-03-04 00:12 | Day surgery (SDC) | payer OTHER | END 2021-03-04 23:07 | disposition home or self-care (01) | LOC: WOUND 00:12 | DX: S91.301D Unspecified open wound, right foot, subsequent encounter (principal); S81.802D Unspecified open wound, left lower leg, subsequent encounter; X58.XXXD Exposure to other specified factors, subsequent encounter; I87.2 Venous insufficiency (chronic) (peripheral); R60.9 Edema, unspecified; I73.9 Peripheral vascular disease, unspecified | CPT/HCPCS: G0463 ==

== ENCOUNTER 2022-07-02 11:58 | Emergency (ER) | payer OTHER ==
[~2022-07-02] VITALS: Ht 160 cm; Wt 113.4 kg
[2022-07-02 12:47] LABS: BASOPHILS ABSOLUTE AUTO 0.06 K/mm3 (0.00-0.23); BASOPHILS PERCENT AUTO 1 % (0-2); EOSINOPHILS PERCENT AUTO 1 % (0-6); Hematocrit 40.7 % (33.0-51.0); Hemoglobin 12.6 g/dL (11.5-16.0); IMMATURE GRAN ABSOLUTE AUTO 0.06 K/mm3 (0.00-0.10); IMMATURE GRAN PERCENT AUTO 1 % (0-1); LYMPHOCYTES PERCENT AUTO 12 % (21-46); MONOCYTES ABSOLUTE AUTO 0.87 K/mm3 (0.16-1.47); MONOCYTES PERCENT AUTO 8 % (4-13); Mean Corpuscular HGB 28.4 pg (26.0-34.0); Mean Corpuscular Volume 92 fL (80-100); Mean Platelet Volume 9.4 fL (9.1-12.4); NEUTROPHILS ABSOLUTE AUTO 8.68 K/mm3 (1.96-9.15); NEUTROPHILS PERCENT AUTO 79 % (41-73); Platelet Count 345 K/mm3 (150-400); RDW Coefficient Variation 12.9 % (11.7-14.2); RDW Standard Deviation 43.8 fL (35.1-46.3); Red Blood Cell Count 4.43 M/mm3 (3.80-5.20); White Blood Cell Count 11.07 K/mm3 (4.00-11.30)
[2022-07-02 13:07] LABS: Albumin, Blood 3.6 g/dL (3.4-5.0); Albumin/Globulin Ratio 0.9 (0.8-1.8); Bilirubin, Total 0.4 mg/dL (0.1-1.0); Bun/Creatinine Ratio 21.5 (12.0-20.0); Calcium, Blood 9.1 mg/dL (8.5-10.1); Creatinine, Blood 0.84 mg/dL (0.40-1.00); Globulin, Blood 4.2 g/dL (2.2-4.0); Potassium, Blood 4.2 mmol/L (3.5-5.5); Total Protein, Blood 7.8 g/dL (6.4-8.2)
== END 2022-07-02 14:57 | disposition home or self-care (01) ==
LOC: ER 11:58
PROVIDERS: Physician Assistant
DX: S80.12XA Contusion of left lower leg, initial encounter (principal); I11.0 Hypertensive heart disease with heart failure; I50.32 Chronic diastolic (congestive) heart failure; J44.9 Chronic obstructive pulmonary disease, unspecified; W18.40XA Slipping, tripping and stumbling without falling, unspecified, initial encounter; Z88.0 Allergy status to penicillin; Z79.52 Long term (current) use of systemic steroids; Z79.899 Other long term (current) drug therapy
CPT/HCPCS: 36415; 73590; 80053; 85025; 99283-25

== ENCOUNTER 2022-07-23 12:11 | Inpatient (IN) | payer OTHER ==
[~2022-07-23] VITALS: Ht 160 cm; Wt 116.9 kg
[~2022-07-23 12:11] MED LIST changes: -ATORVASTATIN CA20 MG PO; -Bisoprolol Fumar5 MG PO; -Buspirone HCl15 MG PO; -Cleocin HCl150 MG PO; -DOXY100 PO; -SYMBICORT 16010.2 GM INH
[2022-07-23 14:19] LABS: BASOPHILS ABSOLUTE AUTO 0.06 K/mm3 (0.00-0.23); BASOPHILS PERCENT AUTO 1 % (0-2); EOSINOPHILS ABSOLUTE AUTO 0.04 K/mm3 (0.00-0.68); EOSINOPHILS PERCENT AUTO 0 % (0-6); Hematocrit 39.8 % (33.0-51.0); Hemoglobin 12.4 g/dL (11.5-16.0); IMMATURE GRAN ABSOLUTE AUTO 0.06 K/mm3 (0.00-0.10); IMMATURE GRAN PERCENT AUTO 1 % (0-1); LYMPHOCYTES ABSOLUTE AUTO 0.98 K/mm3 (0.84-5.20); LYMPHOCYTES PERCENT AUTO 8 % (21-46); MONOCYTES ABSOLUTE AUTO 0.84 K/mm3 (0.16-1.47); MONOCYTES PERCENT AUTO 6 % (4-13); Mean Corpuscular HGB 28.7 pg (26.0-34.0); Mean Corpuscular HGB Conc 31.2 g/dL (31.5-36.5); Mean Corpuscular Volume 92 fL (80-100); Mean Platelet Volume 9.8 fL (9.1-12.4); NEUTROPHILS ABSOLUTE AUTO 11.17 K/mm3 (1.96-9.15); NEUTROPHILS PERCENT AUTO 85 % (41-73); Platelet Count 347 K/mm3 (150-400); RDW Coefficient Variation 12.6 % (11.7-14.2); RDW Standard Deviation 43.4 fL (35.1-46.3); Red Blood Cell Count 4.32 M/mm3 (3.80-5.20); White Blood Cell Count 13.15 K/mm3 (4.00-11.30)
[2022-07-23 14:38] LABS: Albumin, Blood 3.6 g/dL (3.4-5.0); Albumin/Globulin Ratio 0.8 (0.8-1.8); Bilirubin, Total 0.7 mg/dL (0.1-1.0); Bun/Creatinine Ratio 20.3 (12.0-20.0); Calcium, Blood 9.6 mg/dL (8.5-10.1); Creatinine, Blood 0.64 mg/dL (0.40-1.00); Globulin, Blood 4.3 g/dL (2.2-4.0); Potassium, Blood 4.3 mmol/L (3.5-5.5); Total Protein, Blood 7.9 g/dL (6.4-8.2)
[2022-07-23] MEDS ORDERED: Buspirone HCl15 MG PO (23:22)
[2022-07-23] MEDS ORDERED: SYMBICORT 16010.2 GM INH (23:24)
[2022-07-23] MEDS ORDERED: ATORVASTATIN CA20 MG PO (23:28)
[2022-07-23] MEDS ORDERED: Bisoprolol Fumar5 MG PO (23:28)
--- NOTE | 2022-07-24 04:36 | NUR ---
CORPORATE EVENTS DIRECTOR SUMMARY PT ADMIT F/THE ED. ARRIVED TO ROOM APROX 2240. PT HX OF COPD, CHF, AND CHRONIC RESP FAILURE W/HYPOXIA;ON 2L 02 NC AT BASLINE. PT HAS AN OPEN WOUND 2 X 4 CM ON LOWER LEFT LEG. NOTED PURULENT DRAINAGE AND ODOR. PICS OF WOUND TAKEN AND PLACED IN PT CHART. PT IS A/OX4. PT C/O OF CONGESTED SINUS; CONTACTED DR WORKMAN--NEW ORDER FOR NASAL SPRAY 4X DAY PRN. NOTED PT SOB AND TRIPODING ON EDGE OF BED. PT SATURATIONS DROPING DOWN INTO HIGH 70'S/80'S WITH ANY ACTIVITY. TITRATED OXYGEN UP TO 4L NC WHEN PT WENT TO THE BATHROOM. WHEN SHE RETURNED HER SATS WERE DOWN IN LOW 80'S. WAITED FOR SAT TO RETURN TO NORMAL AND TITRATED BACK DOWN. PT CURRENTLY ON 2.5L O2. ORIENTED PT TO ROOM AND CALL LIGHT. PT IS INDEPENDENT WITH ACTIVITY AT HOME. HX OF FALLS--PT STATES WAS NOT WEARING O2 WHEN SHE FELL. NOTED PT WAS ANXIOUS/FEARFUL AT TIMES WHEN OXYGEN SATURATIONS WERE LOW. ABLE TO ADVOCATE FOR NEEDS. CALL LIGHT IN REACH.
--- NOTE | 2022-07-24 04:56 | NUR ---
CONTACT W/PHARMACY PHARMACIST UNABLE TO PROVIDE SUBSTITUE FOR THE PATIENT'S INHALER DUE TO LISTED ALLERGY TO FLUTICASONE. REQUESED THAT PATIENT HAVE BUDESONIDE-FORMOTEROL INHALER BROUGHT FROM HOME.
--- NOTE | 2022-07-24 18:31 | NUR ---
SHIFT SUMMARY PT IS A&O X4 AND PLEASANT. PT WAS MADHURI BY DR. LIGHT TODAY AND TAKEN FOR A CT SCAN OF LEFT LEG. WET TO DRY DRESSING WAS PLACED PER DR. ARSHAD INSTRUCTIONS. INDEPENDENT IN ROOM. PT TO BE NPO AT MIDNIGHT. SISTER AT BEDSIDE IN THE AM. VSS. PT ON 2L OF OXYGEN. USES CALL LIGHT APPROPRIATELY. BED IN LOWEST POSITION AND CALL LIGHT IN REACH.
[2022-07-25 04:52] LABS: Hemoglobin 11.2 g/dL (11.5-16.0); Mean Corpuscular HGB Conc 30.3 g/dL (31.5-36.5); Mean Corpuscular Volume 93 fL (80-100); Mean Platelet Volume 9.8 fL (9.1-12.4); Platelet Count 283 K/mm3 (150-400); RDW Coefficient Variation 12.7 % (11.7-14.2); RDW Standard Deviation 43.5 fL (35.1-46.3); White Blood Cell Count 10.13 K/mm3 (4.00-11.30)
[2022-07-25 05:18] LABS: Alanine Aminotransfer (ALT/SGP 20 U/L (12-78); Albumin, Blood 3.2 g/dL (3.4-5.0); Albumin/Globulin Ratio 0.8 (0.8-1.8); Alk Phos 76 U/L (50-136); Anion Gap 5 mmol/L (6-16); Aspartate Aminotrans (AST/SGOT 14 U/L (12-37); Bilirubin, Total 0.4 mg/dL (0.1-1.0); Blood Urea Nitrogen 24 mg/dL (8-24); Bun/Creatinine Ratio 29.2 (12.0-20.0); CO2, Blood 31 mmol/L (21-32); Calcium, Blood 9.2 mg/dL (8.5-10.1); Chloride, Blood 98 mmol/L (98-108); Creatinine, Blood 0.82 mg/dL (0.40-1.00); Globulin, Blood 3.8 g/dL (2.2-4.0); Glomerular Filtration Rate 79 (60-); Glucose, Blood 126 mg/dL (70-99); Potassium, Blood 4.2 mmol/L (3.5-5.5); Sodium, Blood 134 mmol/L (136-145); Vancomycin, Trough 13.7 ug/mL (5.0-10.0)
--- NOTE | 2022-07-25 06:32 | NUR ---
SHIFT SUMMARY; PATIENT IS AxO X4. THE PT IS CURRENTLY IN HER BEDSIDE CHAIR RECIEVING HER VANCO INFUSION. PT IS ON 2L OF O2 VIA NC SATING AT 94%. THE PATIENT IS INDEPENDENT IN THE ROOM. THE PT IS CONTINENT OF STOOL AND URINE AND IS INDEPENDENT WITH BATHROOM PRIVILEDGES. PT HAS EXERTIONAL DYSPNEA, RESOLVED WITH TAKING A FEW DEEP BREATHES. THE PATIENT OFTEN USES THE BESIDE TABLE A BASE TO ASSUME THE TRIPOD POSITION WHEN FEELING SOB. PT DENIES ANY SOB AT THIS TIME. PT DENIES ANY PAIN IN RELATION TO CELLULITUS. PT ALSO DENIES PAIN IN L LEG WOUND. PT HAD A COVID TEST AND EKG THIS MORNING IN PREPERATION FOR HER IRRIGATION AND DEBRIDEMENT PROCEDURE TODAY. THE PT REMAINS NPO SINCE 0000 TODAY IN PREPRATION FOR PROCEDURE. PT IS CURRENTLY RESTING IN HER BEDSIDE CHAIR WITH CALL LIGHT IN HAND.
[2022-07-25 07:17] LABS: Influenza A, PCR NEGATIVE (NEGATIVE); Influenza B, PCR NEGATIVE (NEGATIVE); Resp Syncytial Virus, PCR NEGATIVE (NEGATIVE); SARS-Cov-2 (COVID-19) PCR, MMC NEGATIVE (NEGATIVE)
--- NOTE | 2022-07-25 13:49 | NUR ---
07/25/22 1349 Shirin Eisenberg NO PREOP ANTIBIOTICS ORDERED PER PATIENT IS ON SCHEDULED ANTIBIOTICS.
--- NOTE | 2022-07-25 18:23 | NUR ---
PT WENT TO DAY SURG FOR I& D ON LEG. CAME BACK WITH WOUND VAC. VERY LITTLE BLOOD IN VAC. LESS THAN TEASPOON. PT STATES VERY LITTLE PAIN. SHE TOLERATED ICE CHIPS, JELLO, PUDDING AND STATES TRY DINNER. EATING SOME NOW. GOING SLOWLY. LEG LOOKS CLEAN AND DRY AT THIS TIME WITH WOUND VAC IN PLACE. VSS. STATES IS USUALLY SOME HIGHER THAN THIS MOMENT, BUT IS AWAKE AND TALKING APPROP. ENCOURAGING HER TO USE I/S Q 15, EACH TELEVISION COMMERCIAL.. SHE AGREABLE/. BED IN LOW POSITION, CALL LITE IN REACH, CALLS APPROP
--- NOTE | 2022-07-25 22:54 | NUR ---
LISINOPRIL ACCIDENTLY DC'D UNDER . CORRECT PROVIDER WHO DC'D LISINOPRIL WAS SNOW STOCK.
[2022-07-26 05:24] LABS: Hematocrit 38.1 % (33.0-51.0); Hemoglobin 11.3 g/dL (11.5-16.0); Mean Corpuscular HGB 27.9 pg (26.0-34.0); Mean Corpuscular HGB Conc 29.7 g/dL (31.5-36.5); Mean Corpuscular Volume 94 fL (80-100); Mean Platelet Volume 9.9 fL (9.1-12.4); Platelet Count 274 K/mm3 (150-400); RDW Coefficient Variation 12.5 % (11.7-14.2); Red Blood Cell Count 4.05 M/mm3 (3.80-5.20); White Blood Cell Count 9.05 K/mm3 (4.00-11.30)
--- NOTE | 2022-07-26 05:35 | NUR ---
PT'S LOWER LEFT LEG WOUND IS CURRENTLY DRESSED WITH A WOUND VAC. THE WOUND APPEARS RED WITH LOCAL WARMTH AT THE WOUND. SCANT AMOUNT OF DRIED BLOOD IS PRESENT AT THE BORDER OF THE WOUND. THE WOUND IS CURRENTLY DRAINING MINIMAL AMOUNTS OF SEROUSSANGUIOUS FLUID. THE PATIENT REPORTS A 4/10 PAIN LEVEL IN RELATION TO THE WOUND. UPON PALPATION TO SURRONDING AREA OF THE WOUND THE PATINET REPORT NO PAIN. THE PATINETS CAPILLARY REFILL IN THE AFFCETED LIMB REMAINS LESS THAN 3 SECONDS.
--- NOTE | 2022-07-26 05:40 | NUR ---
SHIFT SUMMARY: PT IS AXO X4, IS USUALLY INDEPENDENT IN THE ROOM. HOWEVER, DUE TO HER I&D YESTERDAY TO HER LOWER LEFT LEG WOUND SHE IS CURRENTLY ON BED REST WITH BATHROOM PRIVLEDGES TO THE BEDSIDE COMMODE. REFER TO PREVIOUS NOTE ABOUT WOUND VAC AND LEG WOUND STATUS. PT WAS PLEASANT THROUGHPUT SHIFT. THIS RN WAS ABLE TO GET AN ORDER FOR AFRIN WHICH HELPED TO ALLEVIATE SOME OF THE PT'S NASAL CONGESTION. A RESULT, THE PT'S O2 SATS HAVE IMPORVED FROM 92% ON 5L NC TO 97% ON 5L NC. THEREFORE I TRITATED DOWN THE PT'S O2 TO 4L NC. WILL CONTINUE TO MONITOR O2 SATS AND TRITATE DOWN IF APPROPRIATE. PT HAS NO COMPLAINTS OF SOB AT THIS TIME. AT THIS TIME THE PATIENT IS RESTING IN HER RECLINER WITH HER LOWER EXTREMITIES ELEVATED. THE PT IS CURRENTLY RECIEVING HER IV INFUSION OF VANCOMYCIN. PT HAS CALL LIGHT IN HAND.
--- NOTE | 2022-07-26 06:16 | NUR ---
PT THROUGHOUT THE NIGHT USED HER INCENTIVE SPIROMETER EFFECTIVELY. THE PT STATED THAT SHE USES THE INSENTIVE SPIROMETER DURING EACH COMMERCIAL ON TV. CURRENTLY, THE PT IS SITTING IN HER BEDSIDE RECLINER USING HER INSENTIVE SPIROMETER.
[2022-07-26 06:43] LABS: Bun/Creatinine Ratio 27.9 (12.0-20.0); Creatinine, Blood 0.72 mg/dL (0.40-1.00); Percent Saturation 17.1 % (15.0-50.0); Potassium, Blood 4.8 mmol/L (3.5-5.5); Thyroid Stimulating Hormone 0.457 uIU/mL (0.360-4.800)
--- NOTE | 2022-07-26 19:35 | NUR ---
SHIFT SUMMARY: PT A/O X 4, ONE ASSIST FOR TX. PT CONTINUES TO BE ON 02. TITRATED TO 3 LPM VIA NC HIGH FLOW. PT REPORTS BASELINE IS 2-3 LPM VIA NC AT HOME. PT WAS EVALUATED BY DR. MALHOTRA TODAY AND HE REPORTED SHE IS GOOD FOR DISCHARGE ON HIS STANDPOINT. PT EATING WELL AND DOES NOT C/O PAIN IN HER LEG AT THIS TIME. PLEASANT AND COOPERATIVE WITH CARE.
--- NOTE | 2022-07-26 21:32 | NUR ---
UPON ASSESSMENT I NOTICED THAT THE PATIENTS WOUND VAC DRESSING ON THE L LOWER LEG WAS LEAKING. IT WAS DISCOVERED THAT THE WOUND VAC HAD BEEN TURNED OFF FOR AN UNKNOWN AMOUNT OF TIME. THE PTS DRESSING WAS REINFORCED AND THE WOUND VAC WAS PLUGGED BACK IN. CURRENTYLY THE WOUND VAC IS RUNNING WITH NO ISSUES.
--- NOTE | 2022-07-27 03:14 | NUR ---
PT IS CURRENTLY SITTING BEDSIDE USING HER BEDSIDE TABLE TO TRIPOD. THE PT CURRENTLY COMPLAINS OF SOB. PT STATES SHE IS SOB BECAUSE SHE HAS NASAL CONGESTION DESPITE THE ADMINISTRATION OF AFRIN AT 0006. RT WAS CALLED TO ADMINISTER A BREATHING TREATMENT. HOWEVER, AT THIS TIME PT STATES SHE DOES NOT WANT ANY BREATHING TREATMENTS. PT'S CURRENT O2 SAT IS 91% ON 3L HIGH FLOW NC. WILL CONTINUE TO MONITOR PTS RESPIRATORY STATUS WELL OXYGENTATION AND TITRATE OXYGEN ACCORDING TO THE MD'S ORDERS.
[2022-07-27 04:33] LABS: Vancomycin, Trough 14.4 ug/mL (5.0-10.0)
--- NOTE | 2022-07-27 05:48 | NUR ---
SHIFT SUMMARY: PT IS AXO X4. PT IS A STAND BY ASSIST WHEN USING THE BEDSIDE COMMODE. PT WAS PLEASANT THROUGHOUT SHIFT. PT'S WOUND ON L LOWER LEG HAS MINIMAL AMOUNTS OF SEROSANGUINEOUS DRAINAGE OUTPUT, THE BORDER OF THE WOUND HAS SCANTS AMOUNT OF BLOOD. MODERATE EDEMA AND ERYTHREMA PRESENT AT WOUND SITE. WOUND VAC IS ON THE WOUND, APPEARS TO BE FUNCTIONING WELL. PT IS CURRENTLY ON 3L HIGH FLOW NC SATING AT 93%. CURRENTLY THE PT IS SITTING AT THE BEDSIDE WHILE RECIEVING HER VANCOMYCIN INFUSION. THE PT IS ALSO CURRENTLY USING THE BEDSIDE TABLE A BASE TO TRIPOD OVER. INCENTIVE SPIROMETER IS ON THE BEDSIDE TABLE, PT WAS ENCOURAGED TO USE THE DEVICE. THE PT'S BED IS IN THE LOWEST POSITION AND THE CALL LIGHT IS WITHIN REACH. PT DENIES ANY PAIN IN RELATION TO THE WOUND ON THE L LOWER LEG AT THIS TIME.
--- NOTE | 2022-07-27 17:34 | NUR ---
WOUND VAC DRESSING CHANGE. ONE PIECE BLACK FOAM REMOVED, MEPITEL TO EXPOSED TENDON, ONE PIECE BLACK FOAM REAPPLIED. VAC CONTINUOUS 120 MMHG. CANISTER NOT CHANGED. PHOTO AND ASSESSMENT IN HARD CHART
--- NOTE | 2022-07-27 19:50 | NUR ---
SHIFT SUMMARY: PT A/O X 4 STANDBY ASSIST TO BSC. PT UNABLE TO BE DISCHARGED TODAY DUE TO DELAY IN INSURANCE AUTH FOR HOME WOUND VAC. PT IV WENT BAD TODAY AND DR. BLAKE ORDERED PO ANTIBIOTICS FOR HER. PT ON 3 LPM VIA NC AND SATS BETWEEN 94-98%. WOUND VAC DRESSING CHANGE COMPLETED TODAY BY WOUND RN AND PHOTOS AND MEASUREMENTS UPDATED. PT PLEASANT AND COOPERATIVE WITH CARE NEEDS.
--- NOTE | 2022-07-28 05:06 | NUR ---
SHIFT SUMMARY 66 YR F ADMITTED ON 07/23/22 FOR INFECTED WOUND ON LEFT HENDRIX. FULL CODE. NO ACUTE CHANGES THIS SHIFT. PT HAD A BM THIS SHIFT AFTER BEING CONSTIPATED FOR SEVERAL DAYS. SHE STATED THAT SHE WAS UPSET THAT SHE DID NOT DISCHARGE YESTERDAY PLANNED BUT IS HOPEFUL THAT SHE WILL DISCHARGE TODAY. SHE STATES THAT SHE DOES NOT FEEL WELL IN GENERAL AND THAT SHE HAS HOME MEDS (INCLUDING SPIRIVA) THAT SHE IS NOT GETTING IN THE HOSPITAL.
--- NOTE | 2022-07-28 18:34 | NUR ---
SHIFT SUMMARY: PT A/O X 4, STANDBY ASSIST. PLEASANT AND COOPERATIVE WITH CARE. PT HAD UNEVENTFUL DAY TODAY. TOLERATING PO MEDICATIONS. SHE HAD NO COMPLAINTS. REMAINS ON 3 LPM VIA NC. WOUND VAC SEAL REMAINED GOOD THROUGHOUT DAY WITH SEROSANGUINEOUS DRAINAGE. DR. MALHOTRA ROUNDED AND HAD NO CONCERNS FOR DISCHARGE. PT TO FOLLOW-UP AT HIS CLINIC ONCE DISCHARGED.
--- NOTE | 2022-07-29 04:31 | NUR ---
SHIFT SUMMARY 66 YR F ADMITTED ON 07/23/22 FOR A LEFT HENDRIX WOUND. FULL CODE. NO ACUTE CHANGES THIS SHIFT. PT IS ANXIOUS TO GO HOME AND IS DISAPPOINTED THAT IT DID NOT HAPPEN YESTERDAY. SHE STATES THAT SHE HAS NOT SLEPT WELL SINCE SHE HAS BEEN HERE AND SHE WANTS TO SLEEP IN HER OWN BED.
--- NOTE | 2022-07-29 09:13 | NUR ---
WOUND VAC DRESSING CHANGED. ONE PIECE MEPITEL AND ONE PIECE BLACK FOAM REMOVED. ONE PIECE MEPITEL ON MEDIAL BORDER AND ONE PIECE BLACK FOAM REAPPLIED. CANISTER NOT CHANGED. VAC SET TO CONTINUOUS 120MMHG. PT TOLERATED WELL
--- NOTE | 2022-07-29 20:00 | NUR ---
SHIFT SUMMARY: PT A/O X 4 STANDBY ASSIST NEEDED. PLEASANT AND COOPERATIVE. NO CHANGES TODAY. PT AWAITING WOUND VAC AUTH.
--- NOTE | 2022-07-30 04:26 | NUR ---
GUARDIAN FAMILY MEMBER SUMMARY: A&Ox4. PLEASANT AND COOPERATIVE WITH CARE. VSS. INDEPENDENT WITH CARE AND AMBULATION WITHIN ROOM. AWAITING AUTHORIZATION FROM INSURANCE FOR DC. NO CONCERNS WITH ELIMINATION. NO C/O PAIN T/O NIGHT. WILL REPORT TO ONCOMING RN.
[2022-07-30 05:25] LABS: Hematocrit 36.6 % (33.0-51.0); Hemoglobin 11.5 g/dL (11.5-16.0); Mean Corpuscular HGB 28.6 pg (26.0-34.0); Mean Corpuscular HGB Conc 31.4 g/dL (31.5-36.5); Mean Corpuscular Volume 91 fL (80-100); Mean Platelet Volume 10.2 fL (9.1-12.4); Platelet Count 315 K/mm3 (150-400); RDW Coefficient Variation 12.8 % (11.7-14.2); RDW Standard Deviation 42.5 fL (35.1-46.3); Red Blood Cell Count 4.02 M/mm3 (3.80-5.20)
[2022-07-30 05:46] LABS: Albumin, Blood 3.2 g/dL (3.4-5.0); Albumin/Globulin Ratio 0.8 (0.8-1.8); Bilirubin, Total 0.4 mg/dL (0.1-1.0); Calcium, Blood 9.3 mg/dL (8.5-10.1); Creatinine, Blood 0.73 mg/dL (0.40-1.00); Potassium, Blood 4.4 mmol/L (3.5-5.5); Total Protein, Blood 7.2 g/dL (6.4-8.2)
[2022-07-30] MEDS ORDERED: DOXY100 PO (09:51)
[2022-07-30] MEDS ORDERED: Cleocin HCl150 MG PO (09:51)
--- NOTE | 2022-07-30 13:45 | NUR ---
DISCHARGE NOTE: PT A&O AND PLEASANT. PT WOUND VAC WAS CHANGE TO HOME EQUIPMENT. PT PERSONALS WAS PACKED BY PT. PT EDUCATED ON TAKING AND FINISHING ANTIBIOTICS AND MEDICATIONS. PT FAMILY AT BEDSIDE TO DRIVE PT HOME. PT ESCORTED BY AIDEE PAREKH TO THE LOBBY VIA WHEELCHAIR TO LOBBY.
--- NOTE | 2022-07-30 14:21 | NUR ---
THIS DOCUMENT CONTROL CLERK HAS REVIEWED AND AGREES WITH ALL NOTES AND ASESSMENTS BY DOROTHEA DAVIS.
== END 2022-07-30 11:42 | disposition home health service (06) | DRG 571 ==
LOC: ER 12:11 → MEDS 18:22
PROVIDERS: Internal Medicine; Orthopaedic Surgery; Physician Assistant; ADMIT Internal Medicine
PROC: 0JBP0ZZ Excision of Left Lower Leg Subcutaneous Tissue and Fascia, Open Approach (ICD-10-PCS; 2022-07-25)
PROC: 0H9LXZZ Drainage of Left Lower Leg Skin, External Approach (ICD-10-PCS; principal; 2022-07-25 13:00)
DX: L03.116 Cellulitis of left lower limb (principal); A28.0 Pasteurellosis; J96.11 Chronic respiratory failure with hypoxia; E87.1 Hypo-osmolality and hyponatremia; I50.32 Chronic diastolic (congestive) heart failure; Z68.42 Body mass index [BMI] 45.0-49.9, adult; D64.9 Anemia, unspecified; J44.9 Chronic obstructive pulmonary disease, unspecified; E66.9 Obesity, unspecified; I11.0 Hypertensive heart disease with heart failure; Z20.822 Contact with and (suspected) exposure to COVID-19; B95.62 Methicillin resistant Staphylococcus aureus infection as the cause of diseases classified elsewhere; B96.89 Other specified bacterial agents as the cause of diseases classified elsewhere; Z99.81 Dependence on supplemental oxygen; Z90.49 Acquired absence of other specified parts of digestive tract; Z87.891 Personal history of nicotine dependence; Z88.0 Allergy status to penicillin; Z88.8 Allergy status to other drugs, medicaments and biological substances; Z79.51 Long term (current) use of inhaled steroids; Z79.899 Other long term (current) drug therapy; Z79.01 Long term (current) use of anticoagulants; Z79.811 Long term (current) use of aromatase inhibitors
CPT/HCPCS: 0241U; 36415; 71046; 73590; 73701; 80048; 80053; 80202; 82728; 83540; 83550; 83605; 84443; 85025; 85027; 87040; 87070; 87075; 87076; 87077; 87106; 87186; 87205; 93005; 93010; 94640; 94664; 94760; 96365; 96366; 96367; 99285-25; A9270; J1100; J1650; J2250; J2405; J2704; J3010; J3370; J7030; J7050; J7120; Q9967

== ENCOUNTER → 2022-07-23 | Outpatient (CLI) | payer OTHER ==
[~2022-07-23] MED LIST changes: +ATORVASTATIN CA20 MG PO; +Bisoprolol Fumar5 MG PO; +Buspirone HCl15 MG PO; +Cleocin HCl150 MG PO; +DOXY100 PO; +SYMBICORT 16010.2 GM INH
== END | disposition home or self-care (01) ==
LOC: LAB EV 10:38 → LAB SHORT 10:38
DX: L08.9 Local infection of the skin and subcutaneous tissue, unspecified (principal)
CPT/HCPCS: 87070; 87077; 87186; 87205

== ENCOUNTER 2022-07-31 14:05 | Emergency (ER) | payer OTHER ==
[~2022-07-31] VITALS: Ht 160 cm; Wt 115.7 kg
[~2022-07-31 14:05] MED LIST changes: +ATORVASTATIN CA20 MG PO; +Bisoprolol Fumar5 MG PO; +Buspirone HCl15 MG PO; +Cleocin HCl150 MG PO; +DOXY100 PO; +SYMBICORT 16010.2 GM INH
== END 2022-07-31 18:11 | disposition home or self-care (01) ==
LOC: ER 14:05
DX: Z48.01 Encounter for change or removal of surgical wound dressing (principal); J44.9 Chronic obstructive pulmonary disease, unspecified; I50.9 Heart failure, unspecified; Z88.0 Allergy status to penicillin; Z88.8 Allergy status to other drugs, medicaments and biological substances; Z79.899 Other long term (current) drug therapy
CPT/HCPCS: 99282

== ENCOUNTER 2023-07-05 07:38 | Day surgery (SDC) | payer OTHER ==
[2023-07-05] VITALS (15 sets, daily range): BP systolic 111–168; BP diastolic 56–73
[~2023-07-05] VITALS: Ht 160 cm; Wt 118.0 kg
[~2023-07-05 07:38] MED LIST changes: +ASPI81CH PO; +CATAPRES0.1 MG PO
--- NOTE | 2023-07-05 09:28 | NUR ---
Wheelchaired into Day Surgery. History, Chart, Medications and Allergies reviewed before start of procedure. Pre-Op teaching done. Pt verbalizes understanding.
[2023-07-05 09:45] LABS: Bun/Creatinine Ratio 24.7 (12.0-20.0); Calcium, Blood 9.6 mg/dL (8.5-10.1); Creatinine, Blood 0.65 mg/dL (0.40-1.00); Potassium, Blood 4.7 mmol/L (3.5-5.5)
--- NOTE | 2023-07-05 15:50 | NUR ---
ARRIVED TO ROOM VIA VEDA, AWAKE, A&OX4, DENIES ANY PAIN OR SOB, PT ON 4L O2 VIA NC, STATES SHE NORMALLY ON 3L/MIN AT HOME, OBI DRAIN ON R CHEST X3 W/ SEROUSANG. DRAINAGE, BREAST BINDER IN PLACE C/D/I, FAMILY AT BEDSIDE, CONT. TO MONITOR FOR ANY CHANGES.
--- NOTE | 2023-07-05 17:12 | NUR ---
SUMMARY S/P R MASTECTOMY TODAY BY DR. CARMICHAEL, VSS, DENIES ANY PAIN, CHEST BINDER C/D/I, ASSIST OOB TO CHAIR FOR DINNER, NO ACUTE CHANGES THIS SHIFT.
[2023-07-06 00:40] VITALS: BP 142/65
[2023-07-06 02:45] VITALS: BP 109/77
--- NOTE | 2023-07-06 06:39 | NUR ---
SHIFT SUMMARY POD 1- R MASTECTOMY. REPORTS MIN 2/10 PAIN RUCW, DENIES NEED FOR ANY PAIN MEDS T/O NIGHT. HAS 2 OBI DRAINS TO R SIDE, 70ML CORDELL BRIGHT RED DRAINAGE OUT THIS SHIFT. BINDER IN PLACE. SPO2 DROPPING TO 85-86% ON 4L WHILE ASLEEP, INCREASED O2 TO 5L VIA NC & SPO2 90%. CONT PULSE OX IN PLACE. REST OF VS STABLE. BS DIM c CRACKLES IN BASES, HX COPD. HAS VOIDED 2x THIS SHIFT. DENIES N/V. CALL LIGHT IN REACH & WILL MONITOR.
[2023-07-06 07:19] VITALS: BP 136/64
--- NOTE | 2023-07-06 08:29 | NUR ---
A&OX4, REPORTS PAIN IS "OK" AT THIS TIME, DENIES ANY NEED FOR PAIN MEDS AT THIS TIME, OOB TO CHAIR W/ STANDBY ASSIST, OBI DRAIN INTACT, BREAST BINDER C/D/I, DR. CARMICHAEL IN THIS AM.
[2023-07-06] MEDS ORDERED: Norco 5-325 Ta1 EACH PO (10:56)
--- NOTE | 2023-07-06 11:38 | NUR ---
DC'D HOME, DC INSTRUCTIONS GIVEN, VERBALIZED UNDERSTANDING, IV DC'D, CATH INTACT, PT DC'D W/ HOME PORTABLE O2.
== END 2023-07-06 22:47 | disposition home or self-care (01) ==
LOC: ORSCMMR 07:38 → NM 07:38 → ORSCMMR 07:39 → NM 08:30 → ORSCMMR 15:23 → SURS 15:23 → NM 07-06 11:33
PROVIDERS: Surgery
PROC: 0HTT0ZZ Resection of Right Breast, Open Approach (ICD-10-PCS; principal; 2023-07-05 11:00)
PROC: 07B50ZX Excision of Right Axillary Lymphatic, Open Approach, Diagnostic (ICD-10-PCS; principal; 2023-07-05 11:00)
DX: C50.811 Malignant neoplasm of overlapping sites of right female breast (principal); C77.3 Secondary and unspecified malignant neoplasm of axilla and upper limb lymph nodes; Z17.0 Estrogen receptor positive status [ER+]; I10 Essential (primary) hypertension; K21.9 Gastro-esophageal reflux disease without esophagitis; I50.9 Heart failure, unspecified; Z99.81 Dependence on supplemental oxygen; Z79.899 Other long term (current) drug therapy; E66.01 Morbid (severe) obesity due to excess calories; Z68.42 Body mass index [BMI] 45.0-49.9, adult
CPT/HCPCS: 38792; 80048; 88307; 88341; 88342; 93005; 93010; 94640; 94664; 94760; 94762; A9270; A9520; J0690; J1100; J1170; J2405; J2704; J3010; J7120; Q9968

== ENCOUNTER 2023-10-13 09:49 | Emergency (ER) | payer OTHER ==
[~2023-10-13] VITALS: Ht 160 cm; Wt 111.1 kg
[~2023-10-13 09:49] MED LIST changes: +Norco 5-325 Ta1 EACH PO
[2023-10-13 11:00] LABS: Albumin, Blood 3.5 g/dL (3.4-5.0); Bilirubin, Total 0.6 mg/dL (0.1-1.0); Calcium, Blood 9.1 mg/dL (8.5-10.1); Creatinine, Blood 0.65 mg/dL (0.40-1.00); Globulin, Blood 3.6 g/dL (2.2-4.0); Potassium, Blood 4.3 mmol/L (3.5-5.5); Total Protein, Blood 7.1 g/dL (6.4-8.2)
[2023-10-13 11:02] LABS: BASOPHILS ABSOLUTE AUTO 0.03 K/mm3 (0.00-0.23); BASOPHILS PERCENT AUTO 0 % (0-2); EOSINOPHILS ABSOLUTE AUTO 0.12 K/mm3 (0.00-0.68); EOSINOPHILS PERCENT AUTO 1 % (0-6); Hematocrit 39.8 % (33.0-51.0); Hemoglobin 12.6 g/dL (11.5-16.0); IMMATURE GRAN ABSOLUTE AUTO 0.25 K/mm3 (0.00-0.10); IMMATURE GRAN PERCENT AUTO 2 % (0-1); LYMPHOCYTES ABSOLUTE AUTO 1.52 K/mm3 (0.84-5.20); LYMPHOCYTES PERCENT AUTO 11 % (21-46); MONOCYTES ABSOLUTE AUTO 0.93 K/mm3 (0.16-1.47); MONOCYTES PERCENT AUTO 7 % (4-13); Mean Corpuscular HGB Conc 31.7 g/dL (31.5-36.5); Mean Corpuscular Volume 85 fL (80-100); NEUTROPHILS PERCENT AUTO 79 % (41-73); RDW Coefficient Variation 14.7 % (11.7-14.2); RDW Standard Deviation 45.3 fL (35.1-46.3); Red Blood Cell Count 4.67 M/mm3 (3.80-5.20); White Blood Cell Count 13.65 K/mm3 (4.00-11.30)
[2023-10-13 13:08] LABS: Influenza A, PCR NEGATIVE (NEGATIVE); Influenza B, PCR NEGATIVE (NEGATIVE); Resp Syncytial Virus, PCR NEGATIVE (NEGATIVE); SARS-Cov-2 (COVID-19) PCR, MMC NEGATIVE (NEGATIVE)
[2023-10-13 15:30] VITALS: BP 162/78
[2023-10-13] MEDS ORDERED: PRED20 PO (16:05)
== END 2023-10-13 16:40 | disposition home or self-care (01) ==
LOC: ER 09:49
PROVIDERS: Emergency Medicine; Physician Assistant
DX: J43.9 Emphysema, unspecified (principal); J44.9 Chronic obstructive pulmonary disease, unspecified; I50.9 Heart failure, unspecified; C50.919 Malignant neoplasm of unspecified site of unspecified female breast; Z99.81 Dependence on supplemental oxygen; Z88.0 Allergy status to penicillin; Z88.8 Allergy status to other drugs, medicaments and biological substances; Z79.899 Other long term (current) drug therapy; Z79.51 Long term (current) use of inhaled steroids
CPT/HCPCS: 0241U; 71046; 71260; 80053; 83880; 84484; 85025; 85379; 93005; 93010; 94640; 94664; 96360; 99285-25; J7030; Q9967